=== PATIENT | female | born 1960 | race Caucasian/White ===

== ENCOUNTER 2019-11-02 08:08 | Outpatient (CLI) | payer OTHER, SELFPAY ==
--- NOTE | ~2019-11-02 | MM_ITS ---
EXAMINATION: MM screening [facility] BI w laxmi HISTORY: Screening mammogram TECHNIQUE: Craniocaudal and mediolateral oblique 3-D tomosynthesis images were obtained and synthetic 2-D images were generated. CAD analysis was submitted and interpreted. COMPARISON: 10/27/2018, 10/24/2017, 10/20/2016 bilateral digital screening mammogram examinations BREAST PARENCHYMAL COMPOSITION: There are scattered areas of fibroglandular density. FINDINGS: There is no evidence of suspicious mass, calcification, or architectural distortion to sugg est malignancy in either breast. There has been no suspicious interval change. IMPRESSION: 1. No mammographic evidence of malignancy. 2. Recommend routine screening mammography in one year. BI-RADS Category 1: Negative Reviewed, dictated and finalized at location A.
== END 2019-11-02 08:09 | disposition home or self-care (01) ==
LOC: CHSIMG 08:13
PROVIDERS: PCP Internal Medicine; Visit Provider Internal Medicine
DX: Z12.31 Encounter for screening mammogram for malignant neoplasm of breast (principal)
CPT/HCPCS: 77063; 77067

== ENCOUNTER 2020-02-24 15:34 | Outpatient (CLI) | payer OTHER, SELFPAY ==
[2020-02-24 16:37] LABS: SARS-CoV-2 Ag Positive (Negative)
== END 2020-02-24 15:35 | disposition home or self-care (01) ==
LOC: CHSLAB 15:37
PROVIDERS: PCP Internal Medicine; Visit Provider Emergency Medicine
DX: U07.1 COVID-19 (principal); R05 Cough
CPT/HCPCS: 87426

== ENCOUNTER 2020-09-08 07:50 | Outpatient (CLI) | payer OTHER, SELFPAY ==
--- NOTE | ~2020-09-08 | US_ITS ---
EXAMINATION: US right upper quadrant DATE: 09/08/2020 08:39 INDICATION: Right upper quadrant pain TECHNIQUE: Multiple grayscale and Doppler ultrasound images of the abdomen were obtained. COMPARISON: 12/22/2005 FINDINGS: Bowel gas obscures visualization of the pancreas. The visualized portions of the pancreas a re unremarkable. The liver demonstrates increased echogenicity, heterogenous echotexture, and decreas ed through transmission. No surface nodularity. Normal hepatopetal flow in the main portal vein. Ther e is a 3 mm immobile hyperechoic focus in the gallbladder with no posterior acoustic shadowing. The g allbladder is otherwise normal with no abnormal wall thickening, pericholecystic fluid or stones. The normal common bile duct measures 4 mm. There was no sonographic Salomon sign. IMPRESSION: 1. No sonographic correlate for the patient's symptoms. 2. Likely 3 mm gallbladder polyp. 3. Diffuse hepatic steatosis. Reviewed, dictated and finalized at location B.
[2020-09-08 08:05] LABS: Basophils Absolute Auto 0.04 K/mm3 (0.00-0.10); Basophils Percent Auto 0.7 % (0.0-1.0); Eosinophils Absolute Auto 0.04 K/mm3 (0.02-0.50); Eosinophils Percent Auto 0.7 % (1.0-6.0); Hematocrit 47.5 % (35.0-49.0); Immature Granulocyte Absolute 0.01 K/mm3 (0.00-0.00); Immature Granulocyte Percent A 0.2 % (0.0-0.0); Lymphocytes Absolute Auto 1.83 K/mm3 (1.10-4.50); Lymphocytes Percent Auto 30.4 % (18.0-42.0); Mean Corpuscular HGB Conc 33.7 g/dL (32.0-36.0); Mean Platelet Volume 8.9 fl (9.2-11.8); Monocytes Absolute Auto 0.35 K/mm3 (0.10-0.90); Monocytes Percent Auto 5.8 % (2.0-11.0); Neutrophils Absolute Auto 3.7 K/mm3 (1.7-7.2); Neutrophils Percent Auto 62.2 % (50.0-70.0); Platelet Count Result 282 K/mm3 (150-420); Red Blood Count 5.34 M/mm3 (4.20-5.40); Red Cell Distribution Width 12.5 % (11.6-14.4)
[2020-09-08 08:15] LABS: Appearance Urine Clear (Clear); Bilirubin Urine Negative (Negative); Color Urine Yellow (Yellow); Glucose Urine UA Negative (Negative); Ketones Urine 1+ (Negative); Leukocyte Esterase Ur Negative (Negative); Nitrate Urine Negative (Negative); Protein Urine Negative (Negative); Specific Grav Ur >= 1.030 (1.010-1.020); Urobilinogen Urine 0.2 mg/dL (0.2-1.0); pH Urine 5.5 (5.0-8.0)
[2020-09-08 08:21] LABS: Add Urine Microscopic? YES; Bacteria Urine Trace /hpf; Blood Urine Trace-Intact (Negative); RBC Urine 0-2 /hpf (0-2); Squamous Epithelial Cell Urine Few /hpf (Few); WBC Urine 0-3 /hpf (0-3)
[2020-09-08 09:26] LABS: Alanine Aminotransferase 37 U/L (14-59); Albumin Level 4.1 g/dL (3.4-5.0); Alkaline Phosphatase 92 U/L (46-116); Amylase 39 U/L (25-115); Anion Gap 13 mmol/L (8-16); Aspartate Amino Transferase 19 U/L (15-37); Bilirubin,Total 0.7 mg/dL (0.00-1.00); Blood Urea Nitrogen 19 mg/dL (7-18); Calcium 9.9 mg/dL (8.5-10.1); Carbon Dioxide 25 mmol/L (21-32); Chloride 103 mmol/L (98-108); Estimated Glomerular Filt Rate 56; Glucose 125 mg/dL (70-99); Lipase 195 U/L (73-393); Osmolality Calculated 295 mOsm/kg (285-295); Potassium 4.5 mmol/L (3.5-5.1); Sodium 141 mmol/L (136-145); Thyroid Stimulating Hormone 1.12 uIU/mL (0.36-3.74); Total Protein 7.3 g/dL (6.4-8.2)
== END 2020-09-08 07:51 | disposition home or self-care (01) ==
LOC: CHSIMG 07:51
PROVIDERS: PCP Internal Medicine; Visit Provider Internal Medicine
DX: R10.9 Unspecified abdominal pain (principal)
CPT/HCPCS: 36415; 76705; 80053; 81001; 82150; 83036; 83690; 84443; 85025

== ENCOUNTER 2020-11-03 07:51 | Outpatient (CLI) | payer OTHER, SELFPAY ==
--- NOTE | ~2020-11-03 | MM_ITS ---
EXAMINATION: MM screening [facility] BI w laxmi HISTORY: Screening mammogram TECHNIQUE: Craniocaudal and mediolateral oblique 3-D tomosynthesis images were obtained and synthetic 2-D images were generated. CAD analysis was submitted and interpreted. COMPARISON: 11/02/2019, 10/27/2018, 10/24/2017 BREAST PARENCHYMAL COMPOSITION: There are scattered areas of fibroglandular density. FINDINGS: There is no evidence of suspicious mass, calcification, or architectural distortion to sugg est malignancy in either breast. There has been no suspicious interval change. IMPRESSION: 1. No mammographic evidence of malignancy. 2. Recommend routine screening mammography in one year. BI-RADS Category 1: Negative Reviewed, dictated and finalized at location A.
== END 2020-11-03 07:52 | disposition home or self-care (01) ==
LOC: CHSIMG 07:53
PROVIDERS: PCP Internal Medicine; Visit Provider Internal Medicine
DX: Z12.31 Encounter for screening mammogram for malignant neoplasm of breast (principal)
CPT/HCPCS: 77063; 77067

== ENCOUNTER 2020-11-04 15:14 | Outpatient (CLI) | payer OTHER, SELFPAY ==
[2020-11-04 15:35] LABS: Add Urine Microscopic? YES; Appearance Urine Sl Cloudy (Clear); Bilirubin Urine Negative (Negative); Blood Urine 1+ (Negative); Color Urine Light Yellow (Yellow); Glucose Urine UA Negative (Negative); Ketones Urine Negative (Negative); Leukocyte Esterase Ur 1+ LEU/UL (Negative); Nitrate Urine Negative (Negative); Protein Urine Negative (Negative); Specific Grav Ur 1.025 (1.010-1.020); Urobilinogen Urine 0.2 mg/dL (0.2-1.0); pH Urine 5.5 (5.0-8.0)
[2020-11-04 15:40] LABS: Bacteria Urine 1+ /hpf; Calcium Oxalate Crystals Urine Present /hpf; Squamous Epithelial Cell Urine Few /hpf (Few)
== END 2020-11-04 15:15 | disposition home or self-care (01) ==
LOC: CHSLAB 15:16
PROVIDERS: PCP Internal Medicine; Visit Provider Internal Medicine
DX: N39.0 Urinary tract infection, site not specified (principal)
CPT/HCPCS: 81001; 87086; 87088

== ENCOUNTER 2021-04-30 07:28 | Outpatient (CLI) | payer OTHER, SELFPAY ==
[2021-04-30 07:40] LABS: Basophils Absolute Auto 0.04 K/mm3 (0.00-0.10); Basophils Percent Auto 0.8 % (0.0-1.0); Eosinophils Absolute Auto 0.03 K/mm3 (0.02-0.50); Eosinophils Percent Auto 0.6 % (1.0-6.0); Hemoglobin 15.8 g/dL (12.0-15.0); Immature Granulocyte Absolute 0.01 K/mm3 (0.00-0.00); Immature Granulocyte Percent A 0.2 % (0.0-0.0); Lymphocytes Absolute Auto 1.97 K/mm3 (1.10-4.50); Lymphocytes Percent Auto 39.9 % (18.0-42.0); Mean Corpuscular HGB Conc 32.9 g/dL (32.0-36.0); Mean Corpuscular Hemoglobin 29.5 pg (27.0-31.0); Mean Corpuscular Volume 89.6 fL (78.0-102.0); Mean Platelet Volume 8.9 fl (9.2-11.8); Monocytes Absolute Auto 0.27 K/mm3 (0.10-0.90); Monocytes Percent Auto 5.5 % (2.0-11.0); Neutrophils Absolute Auto 2.6 K/mm3 (1.7-7.2); Platelet Count Result 279 K/mm3 (150-420); Red Blood Count 5.36 M/mm3 (4.20-5.40); Red Cell Distribution Width 12.2 % (11.6-14.4); White Blood Count 4.9 K/mm3 (4.8-10.8)
[2021-04-30 07:53] LABS: Hemoglobin A1C 5.9 % (<5.7)
[2021-04-30 08:46] LABS: Alanine Aminotransferase 31 U/L (14-59); Alkaline Phosphatase 96 U/L (46-116); Anion Gap 10 mmol/L (8-16); Aspartate Amino Transferase 15 U/L (15-37); Bilirubin,Total 0.6 mg/dL (0.00-1.00); Blood Urea Nitrogen 15 mg/dL (7-18); Calcium 10.4 mg/dL (8.5-10.1); Carbon Dioxide 26 mmol/L (21-32); Chloride 105 mmol/L (98-108); Estimated Glomerular Filt Rate 57; Glucose 123 mg/dL (70-99); Osmolality Calculated 293 mOsm/kg (285-295); Potassium 4.6 mmol/L (3.5-5.1); Sodium 141 mmol/L (136-145); Total Protein 7.2 g/dL (6.4-8.2)
== END 2021-04-30 07:29 | disposition home or self-care (01) ==
LOC: CHSLAB 07:30
PROVIDERS: PCP Internal Medicine; Visit Provider Internal Medicine
DX: R73.03 Prediabetes (principal)
CPT/HCPCS: 36415; 80053; 83036; 85025

== ENCOUNTER 2021-05-04 08:02 | Outpatient (CLI) | payer OTHER, SELFPAY ==
[2021-05-04 10:41] LABS: Calcium 9.8 mg/dL (8.5-10.1); Phosphorus 2.2 mg/dL (2.6-4.7)
[2021-05-06 05:19] LABS: Ionized Calcium 5.3 mg/dL (4.8-5.6)
[2021-05-07 21:23] LABS: Parathyroid Intact 145 pg/mL (14-64)
== END 2021-05-04 08:03 | disposition home or self-care (01) ==
LOC: CHSLAB 08:04
PROVIDERS: PCP Internal Medicine; Visit Provider Internal Medicine
DX: E83.52 Hypercalcemia (principal)
CPT/HCPCS: 36415; 82310; 82330; 83970; 84100

== ENCOUNTER 2021-06-18 07:14 | Outpatient (CLI) | payer OTHER, SELFPAY ==
--- NOTE | ~2021-06-18 | DEXA_ITS ---
Bone Density Report Name: EN LEE Age: 61 Sex: Female Ethnicity: White Date of : 1960 Indication: hyperparathyroidism; height loss; hysterectomy; Referring Provider: EUGENE, ANNA Study: Bone densitometry was performed. Exam Date: June 18, 2021 Accession number: [id number] Bone Density: Region BMD T-score Z-score Classification AP Spine(L1-L4) 0.797 -2.3 -0.8 Osteopenia Femoral Neck (Left) 0.625 -2.0 -0.7 Osteopenia Total Hip (Left) 0.741 -1.6 -0.6 Osteopenia Femoral Neck (Right) 0.669 -1.6 -0.3 Osteopenia Total Hip (Right) 0.808 -1.1 -0.1 Osteopenia Femoral Neck Mean 0.647 -1.8 -0.5 Osteopenia Total Hip Mean 0.774 -1.4 -0.4 Osteopenia World Health Organization criteria for BMD impression classify patients as: Normal (T-score at or above -1.0), Osteopenia (T-score between -1.0 and -2.5), or Osteoporosis (T-score at or below -2.5). 10-year Fracture Risk(1): Major Osteoporotic Fracture 4.6% Hip Fracture 0.5% Reported Risk Factors: [place] (), Neck BMD=0.625, BMI=42.1 (1) FRAX(R) Version 3.08. Fracture probability calculated for an untreated patient. Fracture probability may be lower if the patient has received treatment. Clinical Information Provided by Patient: Has the following medical conditions: Hyperparathyroidism, Hysterectomy Patient maximum height was 65 Menopause Age: 35 No regular weight bearing exercise Drinks caffeinated beverages Onset of menses at age 12 Number of children 3 Impression: The patient has low bone mass, based on the Total Spine T-score. Discussion: BONE DENSITY IS LOW AT ONE OR MORE SKELETAL SITES. This patient's lowest T-score is low at one or more skeletal sites. It meets the World Health Organization's (WHO) criteria for ?low bone mass? (T-score between -1.0 and -2.5). The patient's 10-year risk of fracture as calculated by FRAX is less than the threshold where pharmacological therapy is recommended by the National Osteoporosis Foundation (NOF). However, all treatment decisions require clinical judgment and consideration of individual patient factors, including patient preferences, comorbidities, previous drug use, risk factors not captured in the FRAX model (e.g., frailty, falls, vitamin D deficiency, increased bone turnover, interval significant decline in bone density) and possible under or overestimation of fracture risk by FRAX. The patient should follow a healthful lifestyle (good nutrition with adequate calcium and vitamin D, and appropriate weight-bearing exercise). Follow-Up: Consider repeating this study in 2 to 3 years to reassess this patient's status, or sooner if there is some new clinical indication. Reported by: Dr. Donell Eagle on 06/18/2021 8:41:00 AM.
[2021-06-18 07:43] LABS: Hemoglobin A1C 5.9 % (<5.7)
[2021-06-18 08:55] LABS: Alanine Aminotransferase 42 U/L (14-59); Albumin Level 3.9 g/dL (3.4-5.0); Alkaline Phosphatase 91 U/L (46-116); Anion Gap 10 mmol/L (8-16); Aspartate Amino Transferase 23 U/L (15-37); Bilirubin,Total 0.7 mg/dL (0.00-1.00); Blood Urea Nitrogen 13 mg/dL (7-18); Calcium 9.8 mg/dL (8.5-10.1); Carbon Dioxide 24 mmol/L (21-32); Chloride 106 mmol/L (98-108); Estimated Glomerular Filt Rate > 60; Free T3 2.88 pg/mL (2.18-3.98); Free T4 Free Thyroxine 1.25 ng/dL (0.76-1.46); Glucose 114 mg/dL (70-99); Osmolality Calculated 291 mOsm/kg (285-295); Phosphorus 2.7 mg/dL (2.6-4.7); Potassium 4.6 mmol/L (3.5-5.1); Sodium 140 mmol/L (136-145); Thyroid Stimulating Hormone 1.44 uIU/mL (0.36-3.74); Total Protein 7.6 g/dL (6.4-8.2)
[2021-06-21 02:00] LABS: Ionized Calcium 5.4 mg/dL (4.8-5.6)
[2021-06-21 12:12] LABS: Total Volume 1800 mL; Urine Calcium 19.4 mg/dL
[2021-06-23 12:08] LABS: Parathyroid Intact 293 pg/mL (14-64)
[2021-06-23 13:50] LABS: Vitamin D 25 Hydroxy 11 ng/mL (30-100)
== END 2021-06-18 07:15 | disposition home or self-care (01) ==
PROVIDERS: PCP Internal Medicine; Visit Provider Nurse Practitioner
DX: E21.3 Hyperparathyroidism, unspecified (principal); R73.03 Prediabetes
CPT/HCPCS: 36415; 77080; 80053; 82306; 82330; 82340; 83036; 83525; 83970; 84100; 84439; 84443; 84481

== ENCOUNTER 2021-09-23 07:52 | Outpatient (CLI) | payer OTHER, SELFPAY ==
[2021-09-23 09:11] LABS: Alanine Aminotransferase 32 U/L (14-59); Albumin Level 3.9 g/dL (3.4-5.0); Alkaline Phosphatase 90 U/L (46-116); Anion Gap 6 mmol/L (8-16); Aspartate Amino Transferase 15 U/L (15-37); Bilirubin,Total 0.7 mg/dL (0.00-1.00); Blood Urea Nitrogen 12 mg/dL (7-18); Carbon Dioxide 26 mmol/L (21-32); Chloride 107 mmol/L (98-108); Estimated Glomerular Filt Rate > 60; Glucose 128 mg/dL (70-99); Osmolality Calculated 289 mOsm/kg (285-295); Phosphorus 2.2 mg/dL (2.6-4.7); Potassium 4.5 mmol/L (3.5-5.1); Sodium 139 mmol/L (136-145); Total Protein 7.4 g/dL (6.4-8.2)
[2021-09-26 18:59] LABS: Vitamin D 25 Hydroxy 44 ng/mL (30-100)
[2021-09-27 08:58] LABS: Ionized Calcium 5.4 mg/dL (4.8-5.6)
[2021-09-28 13:24] LABS: Parathyroid Intact 129 pg/mL (14-64)
== END 2021-09-23 07:53 | disposition home or self-care (01) ==
LOC: CHSLAB 07:54
PROVIDERS: PCP Internal Medicine; Visit Provider Nurse Practitioner
DX: E21.3 Hyperparathyroidism, unspecified (principal)
CPT/HCPCS: 36415; 80053; 82306; 82330; 83970; 84100

== ENCOUNTER 2021-09-24 07:19 | Outpatient (CLI) | payer OTHER, SELFPAY ==
[2021-09-29 20:54] LABS: Total Volume 1000 mL; Urine Calcium 38.8 mg/dL
== END 2021-09-24 07:20 | disposition home or self-care (01) ==
LOC: CHSLAB 07:21
PROVIDERS: PCP Nurse Practitioner; Visit Provider Nurse Practitioner
DX: E21.3 Hyperparathyroidism, unspecified (principal)
CPT/HCPCS: 82340

== ENCOUNTER 2021-11-05 07:20 | Outpatient (CLI) | payer OTHER, SELFPAY ==
--- NOTE | ~2021-11-05 | MM_ITS ---
EXAMINATION: MM screening [facility]la BI w laxmi HISTORY: Screening TECHNIQUE: Craniocaudal and mediolateral oblique 3-D tomosynthesis images were obtained and synthetic 2-D images were generated. CAD analysis was submitted and interpreted. COMPARISON: Comparison to multiple prior studies sequentially, with oldest reviewed study dated 09/07. BREAST PARENCHYMAL COMPOSITION: The breasts are almost entirely fatty. FINDINGS: There is no evidence of suspicious mass, calcification, or architectural distortion to sugg est malignancy in either breast. There has been no suspicious interval change. IMPRESSION: 1. No mammographic evidence of malignancy. 2. Recommend routine screening mammography in one year. BI-RADS Category 1: Negative Reviewed, dictated and finalized at location A.
== END 2021-11-05 07:21 | disposition home or self-care (01) ==
LOC: CHSIMG 07:21
PROVIDERS: PCP Internal Medicine; Visit Provider Internal Medicine
DX: Z12.31 Encounter for screening mammogram for malignant neoplasm of breast (principal)
CPT/HCPCS: 77063; 77067

== ENCOUNTER 2022-01-26 07:17 | Outpatient (CLI) | payer OTHER, SELFPAY ==
[2022-01-26 07:53] LABS: Hemoglobin A1C 5.9 % (<5.7)
[2022-01-26 08:16] LABS: Alanine Aminotransferase 36 U/L (14-59); Albumin Level 3.9 g/dL (3.4-5.0); Alkaline Phosphatase 78 U/L (46-116); Anion Gap 6 mmol/L (8-16); Aspartate Amino Transferase 20 U/L (15-37); Bilirubin,Total 0.6 mg/dL (0.00-1.00); Blood Urea Nitrogen 15 mg/dL (7-18); Calcium 10.3 mg/dL (8.5-10.1); Carbon Dioxide 30 mmol/L (21-32); Chloride 105 mmol/L (98-108); Estimated Glomerular Filt Rate 50; Glucose 124 mg/dL (70-99); Osmolality Calculated 293 mOsm/kg (285-295); Phosphorus 2.6 mg/dL (2.6-4.7); Potassium 4.4 mmol/L (3.5-5.1); Sodium 141 mmol/L (136-145); Total Protein 7.3 g/dL (6.4-8.2)
[2022-01-28 17:41] LABS: Vitamin D 25 Hydroxy 60 ng/mL (30-100)
[2022-01-29 10:36] LABS: Insulin Level Total 6.8 uIU/mL (<=19.6)
[2022-01-29 17:12] LABS: Ionized Calcium 5.5 mg/dL (4.8-5.6)
[2022-01-31 19:51] LABS: Parathyroid Intact 151 pg/mL (14-64)
== END 2022-01-26 07:18 | disposition home or self-care (01) ==
LOC: CHSLAB 07:19
PROVIDERS: PCP Internal Medicine; Visit Provider Nurse Practitioner
DX: E21.3 Hyperparathyroidism, unspecified (principal); R73.03 Prediabetes; E55.9 Vitamin D deficiency, unspecified
CPT/HCPCS: 36415; 80053; 82306; 82330; 83036; 83525; 83970; 84100

== ENCOUNTER 2022-06-11 07:46 | Outpatient (CLI) | payer OTHER, SELFPAY ==
[2022-06-11 08:20] LABS: Hemoglobin A1C 5.9 % (<5.7)
[2022-06-11 08:51] LABS: Alanine Aminotransferase 48 U/L (14-59); Alkaline Phosphatase 75 U/L (46-116); Anion Gap 18 mmol/L (8-16); Aspartate Amino Transferase 20 U/L (15-37); Bilirubin,Total 0.7 mg/dL (0.00-1.00); Blood Urea Nitrogen 13 mg/dL (7-18); Calcium 10.1 mg/dL (8.5-10.1); Carbon Dioxide 18 mmol/L (21-32); Chloride 106 mmol/L (98-108); Estimated Glomerular Filt Rate 58; Glucose 134 mg/dL (70-99); Osmolality Calculated 296 mOsm/kg (285-295); Phosphorus 2.4 mg/dL (2.6-4.7); Potassium 4.4 mmol/L (3.5-5.1); Sodium 142 mmol/L (136-145); Total Protein 7.7 g/dL (6.4-8.2)
[2022-06-14 11:31] LABS: Ionized Calcium 5.5 mg/dL (4.7-5.5)
[2022-06-15 12:43] LABS: Insulin Level Total 10.9 uIU/mL (<=19.6)
[2022-06-15 17:50] LABS: Vitamin D 25 Hydroxy 56 ng/mL (30-100)
[2022-06-16 16:11] LABS: Parathyroid Intact 159 pg/mL (14-64)
[2022-06-17 05:47] LABS: Calcium/Creatinine Ratio, Ur 228 mg/g creat (10-320)
[2022-06-19 11:01] LABS: Urine Creatinine, Random 57 mg/dL
== END 2022-06-11 07:47 | disposition home or self-care (01) ==
LOC: CHSLAB 07:48
PROVIDERS: PCP Internal Medicine; Visit Provider Nurse Practitioner
DX: E21.3 Hyperparathyroidism, unspecified (principal); R73.03 Prediabetes; E55.9 Vitamin D deficiency, unspecified
CPT/HCPCS: 36415; 80053; 82306; 82310; 82330; 82570; 83036; 83525; 83970; 84100

== ENCOUNTER 2022-11-08 07:26 | Outpatient (CLI) | payer OTHER, SELFPAY ==
--- NOTE | ~2022-11-08 | MM_ITS ---
EXAMINATION: MM screening [facility] BI w laxmi HISTORY: Screening mammogram TECHNIQUE: Craniocaudal and mediolateral oblique 3-D tomosynthesis images were obtained and synthetic 2-D images were generated. CAD analysis was submitted and interpreted. COMPARISON: 11/05/2021, 11/03/2020, 11/02/2019 BREAST PARENCHYMAL COMPOSITION: There are scattered areas of fibroglandular density. FINDINGS: No suspicious mass, calcification, or architectural distortion are identified in either pascale ast to suggest malignancy. There has been no suspicious interval change. IMPRESSION: 1. No mammographic evidence of malignancy. 2. Recommend routine screening mammography in one year. BI-RADS Category 1: Negative Reviewed, dictated and finalized at location A.
== END 2022-11-08 07:27 | disposition home or self-care (01) ==
LOC: CHSIMG 07:27
PROVIDERS: PCP Internal Medicine; Visit Provider Internal Medicine
DX: Z12.31 Encounter for screening mammogram for malignant neoplasm of breast (principal)
CPT/HCPCS: 77063; 77067

== ENCOUNTER 2022-11-30 13:00 | Outpatient (CLI) | payer OTHER, SELFPAY ==
--- NOTE | ~2022-11-30 | XR_ITS ---
EXAMINATION: XR hip LT min 2V INDICATION: Left hip pain TECHNIQUE: Two views of the left hip are obtained. COMPARISON: None available FINDINGS: Bone alignment is normal. There is no fracture. There is mild osteoarthritis of the hip. Mo derate osteitis pubis is noted. There are phleboliths of the pelvis. IMPRESSION: 1. Mild osteoarthritis of the hip. Reviewed, dictated and finalized at location L.
--- NOTE | ~2022-11-30 | XR_ITS ---
EXAMINATION: XR lumbar spine 2-3V DATE: 11/30/2022 13:32 INDICATION: Low back pain TECHNIQUE: Anteroposterior and lateral views of the lumbar spine, and cone-down lateral view of the l umbosacral junction were obtained. COMPARISON: 04/25/2008 FINDINGS: There are 2 mm of anterolisthesis of L5 on S1. The vertebral body heights are maintained. T here is moderate loss of intervertebral disc space height at L4-5 and L5-S1. There is no fracture. Mo derate facet joint osteoarthritis noted in the lower lumbar spine. IMPRESSION: 1. Moderate lower lumbar spondylosis without acute findings. Reviewed, dictated and finalized at location L.
--- NOTE | ~2022-11-30 | XR_ITS ---
EXAMINATION: XR knee LT 3V DATE: 11/30/2022 13:33 INDICATION: Left knee pain TECHNIQUE: Three views of the left knee were obtained. COMPARISON: None. FINDINGS: Alignment is normal. No fracture or osteochondral lesion. There is mild tricompartmental os teoarthritis characterized by tiny marginal osteophytes. No joint effusion/synovitis. Soft tissues a re unremarkable. IMPRESSION: 1. Mild osteoarthritis without acute osseous abnormality. Reviewed, dictated and finalized at location L.
== END 2022-11-30 13:01 | disposition home or self-care (01) ==
LOC: CHSIMG 13:02
PROVIDERS: PCP Internal Medicine; Visit Provider Internal Medicine
DX: M17.12 Unilateral primary osteoarthritis, left knee (principal); M16.12 Unilateral primary osteoarthritis, left hip; M43.06 Spondylolysis, lumbar region
CPT/HCPCS: 72100; 73502; 73562

== ENCOUNTER 2022-12-06 15:01 | Outpatient (RCR) | payer OTHER, SELFPAY ==
--- NOTE | 2022-12-06 15:54 | PTOPEVAL1 ---
Assessment and note entered by Solitario Fernando Evaluation Information Assessment Status Evaluation Diagnosis low back pain Onset 11/05/22 Subjective Information Pt. describes pain starting in the left buttock and radiating into the front of the left thigh. She recalls no particular incident, just a gradual onset of pain about 1 month ago. She reports that her pain has been getting worse over the past month. She reports that she has been more busy with walking lately which may be increasing her pain. She reports she has to sleep in the recliner due to her pain. She reports that she is currently taking a steroid dose pack, however no relief. She reports that she can walk about 10 minutes before having to stop due to pain. She reports that she has had xray of the back, hip and knee, which revealed some problems at the L4-5, L5-S1 area. She reports that her goal is to reduce her pain with walking. Reported Pain Level Pain Score 8: Self Report Assessment PT Clinical Summary Pt. is a 62 year old female who enters the clinic with low back pain and left l.e. radiculopathy. She presents with impaired postural awareness, impaired gait, impaired l.e. strength, pain and functional decline. Continued skilled PT is indicated in order to improve these areas to allow the pt. to be able to complete all IADL's without limitation. Plan of Care Interventions Electrical Stimulation,Hot Pack/Cold Pack,Manual Therapy,Mechanical Traction,Neuro Re-education, Patient/Caregiver Educati,Therapeutic Activities, Therapeutic Exercise PT Services Indicated Yes Treatment Frequency and 2x/week x 10 visits Duration These treatments will address the objective and functional deficits as defined above. The patient will be advanced safely and appropriately in order for the patient to progress towards his/her prior level of function. Additional exercises will be introduced and as well as a comprehensive home exercise program upon discharge, if needed, ?to ensure carryover of functional gains achieved in the clinic. This treatment plan has been reviewed and agreement upon by the patient.
--- NOTE | 2022-12-06 16:12 | OPREHPOC ---
Outpatient Therapy Plan of Care This is a Multidisciplinary Plan of Care that may contain components documented by all disciplines (PT, OT, and ST.) PT Problem 1 PT Problem #1 Knowledge Deficit PT Goal 1 Goal Independent with a HEP focusing on core strength and trunk mobility Target Visit 2 PT Problem 2 PT Problem #2 Impaired Flexibility PT Goal 1 Goal Pt. will present at 10 degrees from full knee extension with the 90/90 test on the left Target Visit 5 PT Problem 3 PT Problem #3 Impaired Functional Mobil PT Goal 1 Goal Pt. will present with ability to complete 20-30 minutes of standing activities with 2/10 pain at worst. Target Visit 10 PT Goal 2 Goal Pt. will demonstrate ability to lift 20# from floor to waist with proper body mechanics. Target Visit 10
--- NOTE | 2023-01-10 10:24 | PTOPDC ---
Assessment and note entered by Solitario Fernando Discharge Information Assessment Status Discharge Diagnosis low back pain Onset 11/05/22 Subjective Information Pt. reports that she only notes temporary relief following therapy. She reports that she still has pain radiating through the described lateral left thigh. She reports that she is still having difficulty with sleeping at night. She states that she will contact her doctor regarding her remaining pain. Reported Pain Level Pain Score 5: Self Report Assessment PT Clinical Summary Pt. has demonstrated no change in her reports of pain and demonstrates a decline in her Oswestry score. She continues to present with symptoms consistent with lumbar radiculopathy as well as interarticular pathology at the hip. At this time recommend the pt. return to her doctor and consider MRI of the spine to determine if injections are appropriate. Plan of Care PT Services Indicated D/C from PT and considder MRI of the lumbar spine.
== END 2023-01-10 11:35 | disposition home or self-care (01) ==
LOC: CHSPT 15:01
PROVIDERS: PCP Internal Medicine; Visit Provider Internal Medicine
DX: M54.50 Low back pain, unspecified (principal)
CPT/HCPCS: 97012; 97014; 97110; 97140; 97161; G0283

== ENCOUNTER 2023-01-20 08:18 | Outpatient (CLI) | payer OTHER, SELFPAY ==
--- NOTE | ~2023-01-20 | MR_ITS ---
MRI of the lumbar spine Clinical History: Left lower extremity pain Technique: Axial T2-weighted images, and sagittal T1-weighted, T2-weighted, and T2 fat-sat images wer e acquired. Findings: There is no fracture or subluxation of the lumbar spine. Vertebral bodies maintain normal h eight and alignment. No suspicious bone marrow signal abnormality seen. At L1-L2, there is mild disc bulge. No spinal canal stenosis or neural foraminal narrowing. At L2-L3, there is no disc bulge or herniation. No spinal canal stenosis or neural foraminal narrowin g. At L3-L4, there is no significant disc bulge or herniation. There is mild facet arthropathy. No spina l canal stenosis or neural foraminal narrowing. At L4-L5, there is mild diffuse disc bulge and mild facet arthropathy. No central canal stenosis. The re is mild to moderate right neural foraminal narrowing. Left neural foramen preserved. At L5-S1, there is mild diffuse disc bulge with severe facet arthropathy. There is probable severe or thecal sac compression, largely due to prominent epidural fat at this region. There is mild to moder ate bilateral neural foraminal narrowing. Paravertebral soft tissues are otherwise unremarkable. Impression: Severe thecal sac compression and L5-S1, largely due to prominent epidural fat in this region. Mild to moderate bilateral neural foraminal narrowing at L5-S1. Mild degenerative change at L4-L5. Reviewed, dictated and finalized at [facility]. MINING ANALYST Impression: Severe thecal sac compression and L5-S1, largely due to prominent epidural fat in this region. Mild to moderate bilateral neural foraminal narrowing at L5-S1. Mild degenerative change at L4-L5.
== END 2023-01-20 08:19 | disposition home or self-care (01) ==
LOC: CHSIMG 08:20
PROVIDERS: PCP Internal Medicine; Visit Provider Internal Medicine
DX: M79.605 Pain in left leg (principal); M25.552 Pain in left hip; G95.29 Other cord compression; M48.07 Spinal stenosis, lumbosacral region
CPT/HCPCS: 72148

== ENCOUNTER 2023-02-17 07:58 | Outpatient (CLI) | payer OTHER, SELFPAY ==
[2023-02-17 08:11] LABS: Basophils Absolute Auto 0.06 K/mm3 (0.00-0.10); Basophils Percent Auto 1.1 % (0.0-1.0); Eosinophils Absolute Auto 0.08 K/mm3 (0.02-0.50); Eosinophils Percent Auto 1.5 % (1.0-6.0); Hematocrit 46.5 % (35.0-49.0); Hemoglobin 15.3 g/dL (12.0-15.0); Immature Granulocyte Absolute 0.01 K/mm3 (0.00-0.00); Immature Granulocyte Percent A 0.2 % (0.0-0.0); Lymphocytes Absolute Auto 2.04 K/mm3 (1.10-4.50); Lymphocytes Percent Auto 37.5 % (18.0-42.0); Mean Corpuscular HGB Conc 32.9 g/dL (32.0-36.0); Mean Corpuscular Hemoglobin 29.5 pg (27.0-31.0); Mean Corpuscular Volume 89.8 fL (78.0-102.0); Mean Platelet Volume 8.5 fl (9.2-11.8); Monocytes Absolute Auto 0.31 K/mm3 (0.10-0.90); Monocytes Percent Auto 5.7 % (2.0-11.0); Neutrophils Absolute Auto 2.9 K/mm3 (1.7-7.2); Platelet Count Result 328 K/mm3 (150-420); Red Blood Count 5.18 M/mm3 (4.20-5.40); Red Cell Distribution Width 12.3 % (11.6-14.4); White Blood Count 5.4 K/mm3 (4.8-10.8)
[2023-02-17 08:14] LABS: Appearance Urine Slightly Cloudy (Clear); Bilirubin Urine Negative (Negative); Color Urine Light Yellow (Yellow); Glucose Urine UA Negative (Negative); Ketones Urine Negative (Negative); Leukocyte Esterase Ur 2+ (Negative); Nitrate Urine Negative (Negative); Protein Urine Negative (Negative)
[2023-02-17 08:18] LABS: Creatinine Urine 118.44 mg/dL (40-278); MALB Creatinine Ratio 17.6 mg/g (0-30); Microalbumin Urine Random 20.9 mg/L
[2023-02-17 08:26] LABS: Hemoglobin A1C 5.6 % (<5.7)
[2023-02-17 08:33] LABS: Add Urine Microscopic? YES; Blood Urine Trace-lysed (Negative); RBC Urine 0-2 /hpf (0-2)
[2023-02-17 08:34] LABS: Bacteria Urine Rare /hpf; Squamous Epithelial Cell Urine Few /hpf (Few)
[2023-02-17 08:57] LABS: Alanine Aminotransferase 37 U/L (14-59); Albumin Level 4.2 g/dL (3.4-5.0); Alkaline Phosphatase 83 U/L (46-116); Anion Gap 2 mmol/L (8-16); Aspartate Amino Transferase 15 U/L (15-37); Bilirubin,Total 0.8 mg/dL (0.00-1.00); Blood Urea Nitrogen 14 mg/dL (7-18); Calcium 10.5 mg/dL (8.5-10.1); Carbon Dioxide 32 mmol/L (21-32); Chloride 101 mmol/L (98-108); Cholesterol 247 mg/dL (0-200); Estimated Glomerular Filt Rate 49; Free T3 2.69 pg/mL (2.18-3.98); Free T4 Free Thyroxine 1.31 ng/dL (0.76-1.46); Glucose 112 mg/dL (70-99); HDL Direct 67 mg/dL (40-60); LDL Cholesterol Calculated 155 mg/dL (<130); Osmolality Calculated 281 mOsm/kg (285-295); Potassium 4.2 mmol/L (3.5-5.1); Sodium 135 mmol/L (136-145); Thyroid Stimulating Hormone 0.95 uIU/mL (0.36-3.74); Total Protein 7.4 g/dL (6.4-8.2); Triglycerides 125 mg/dL (0-150)
[2023-02-20 15:43] LABS: Vitamin D 25 Hydroxy 54 ng/mL (30-100)
[2023-02-20 22:21] LABS: Vitamin D 1,25 (OH)2 Total 65 pg/mL (18-72); Vitamin D2 1,25 (OH)2 <8 pg/mL; Vitamin D3 1,25 (OH)2 65 pg/mL
[2023-02-21 21:00] LABS: Parathyroid Intact 185 pg/mL (14-64)
== END 2023-02-17 07:59 | disposition home or self-care (01) ==
LOC: CHSLAB 07:59
PROVIDERS: PCP Internal Medicine; Visit Provider Internal Medicine
DX: Z00.00 Encounter for general adult medical examination without abnormal findings (principal); R73.03 Prediabetes; E21.3 Hyperparathyroidism, unspecified
CPT/HCPCS: 36415; 80053; 80061; 81001; 82043; 82306; 82652; 83036; 83970; 84439; 84443; 84481; 85025

== ENCOUNTER 2023-02-24 07:19 | Outpatient (CLI) | payer OTHER, SELFPAY ==
--- NOTE | ~2023-02-24 | MR_ITS ---
MRI of the left hip Clinical history: Pain Technique: Coronal T1-weighted, T2-weighted, and proton-density fat-sat images, and axial T1-weighted and proton-density fat-sat images were acquired through the pelvis. Coronal T2-weighted images and c oronal, axial, and sagittal proton-density fat-sat images were acquired through the left hip. Findings: There is no acute fracture or avascular necrosis of either hip. There is extensive marrow e jsoi of the left femoral head and femoral neck, with associated myoedema probably in the superior lef t acetabulum. There is extensive high-grade chondral malacia the left hip joint. Moderate left hip erica int effusion is present. No definite left acetabular labral tear identified. Right hip joint is trace diffuse mild to moderate chondral malacia. No marrow edema about the right h ip. No right hip joint effusion. SI joints appear intact. No muscle atrophy or edema identified about the pelvis or left hip. The rest tendons are intact. No e vidence for bursitis. No soft tissue mass seen. IMPRESSION: Extensive marrow edema of the left femoral head and neck, with more mild involvement in the acetabulu m. This is probably reactive marrow edema due to underlying advanced degenerative change/chondromalac ia of the left hip joint. Septic arthritis or transient osteoporosis of the hip would be a potential alternative considerations. No definite fracture or AVN seen. Moderate left hip joint effusion, nonspecific. Consider joint aspiration, especially if there is any clinical concern for septic joint. Reviewed, dictated and finalized at location . LE ASSEMBLER IMPRESSION: Extensive marrow edema of the left femoral head and neck, with more mild involv ement in the acetabulum. This is probably reactive marrow edema due to underlyi ng advanced degenerative change/chondromalacia of the left hip joint. Septic ar thritis or transient osteoporosis of the hip would be a potential alternative c onsiderations. No definite fracture or AVN seen. Moderate left hip joint effusion, nonspecific. Consider joint aspiration, espec ially if there is any clinical concern for septic joint.
== END 2023-02-24 07:20 | disposition home or self-care (01) ==
LOC: CHSIMG 07:20
PROVIDERS: PCP Internal Medicine; Visit Provider Internal Medicine
DX: M25.552 Pain in left hip (principal); M79.89 Other specified soft tissue disorders; M94.252 Chondromalacia, left hip; M25.452 Effusion, left hip
CPT/HCPCS: 73721

== ENCOUNTER 2023-02-28 08:29 | Outpatient (CLI) | payer OTHER, SELFPAY ==
--- NOTE | ~2023-02-28 | NM_ITS ---
EXAMINATION: NM parathyroid w imaging DATE: 02/28/2023 12:32 INDICATION: Hyperparathyroidism TECHNIQUE: 24.2 mCi Tc99m tetrofosmin (Myoview) was administered by intravenous route. Anterior image s of the neck were obtained at 10 minutes and 2 hours. COMPARISON: None. FINDINGS/IMPRESSION: There is no focus of abnormal persistent activity in the area of the thyroid or mediastinum to sugges t parathyroid adenoma. Reviewed, dictated and finalized at location A. HEADER
== END 2023-02-28 08:30 | disposition home or self-care (01) ==
LOC: CHSIMG 08:30
PROVIDERS: PCP Internal Medicine; Visit Provider Internal Medicine Endocrinology, Diabetes & Metabolism
DX: R82.994 Hypercalciuria (principal); E21.3 Hyperparathyroidism, unspecified
CPT/HCPCS: 78070; A9500

== ENCOUNTER 2023-05-17 09:08 | Outpatient (CLI) | payer OTHER, SELFPAY ==
--- NOTE | ~2023-05-17 | US_ITS ---
EXAMINATION: US thyroid DATE: 05/17/2023 09:32 INDICATION: Hyperparathyroidism TECHNIQUE: Multiple ultrasound images of the thyroid were obtained. COMPARISON: None. FINDINGS: The right thyroid lobe measures 3.7 x 1.7 x 1.5 cm. The thyroid isthmus measures 7 mm in maximal thic kness. The left thyroid lobe measures 3.9 x 2.7 x 2.7 cm. There is a 3.2 x 2.5 x 2.5 cm predominant solid isoechoic nodule with smooth to ill-defined margins and without internal echogenic foci in the left thyroid lobe. (TI-RADS 3, mildly suspicious , FNA if >=2.5 cm, annual followup is >=1.5 cm). The re is otherwise normal echotexture, echogenicity and vascular flow throughout the thyroid gland. IMPRESSION: 1. 3.2 cm TI RADS 3 left thyroid nodule for which ultrasound-guided biopsy would be recommended. Reviewed, dictated and finalized at location A. [facility] [employer] IMPRESSION: 1. 3.2 cm TI RADS 3 left thyroid nodule for which ultrasound-guided biopsy woul d be recommended.
== END 2023-05-17 09:09 | disposition home or self-care (01) ==
LOC: CHSIMG 09:11
PROVIDERS: PCP Internal Medicine
DX: E21.3 Hyperparathyroidism, unspecified (principal); E04.1 Nontoxic single thyroid nodule
CPT/HCPCS: 76536

== ENCOUNTER 2023-08-01 07:17 | Outpatient (CLI) | payer OTHER, SELFPAY ==
[2023-08-01 23:10] LABS: Alanine Aminotransferase 30 U/L (14-59); Albumin Level 3.9 g/dL (3.4-5.0); Alkaline Phosphatase 68 U/L (46-116); Anion Gap 8 mmol/L (4-12); Aspartate Amino Transferase 17 U/L (15-37); Bilirubin,Total 1.3 mg/dL (0.00-1.00); Blood Urea Nitrogen 15 mg/dL (7-18); Calcium 10.9 mg/dL (8.5-10.1); Carbon Dioxide 32 mmol/L (21-32); Chloride 101 mmol/L (98-108); Cholesterol 143 mg/dL (0-200); Estimated Glomerular Filt Rate > 60; Free T4 Free Thyroxine 1.21 ng/dL (0.76-1.46); Glucose 104 mg/dL (70-99); HDL Direct 76 mg/dL (40-60); LDL Cholesterol Calculated 46 mg/dL (<130); Osmolality Calculated 292 mOsm/kg (285-295); Sodium 141 mmol/L (136-145); Thyroid Stimulating Hormone 0.95 uIU/mL (0.36-3.74); Total Protein 7.1 g/dL (6.4-8.2); Triglycerides 106 mg/dL (0-150)
[2023-08-03 00:24] LABS: Parathyroid Intact 121 pg/mL (16-77)
[2023-08-03 03:44] LABS: Vitamin D 25 Hydroxy 82 ng/mL (30-100)
== END 2023-08-01 07:18 | disposition home or self-care (01) ==
LOC: CHSLAB 07:20
PROVIDERS: PCP Internal Medicine; Visit Provider Internal Medicine Endocrinology, Diabetes & Metabolism
DX: R82.994 Hypercalciuria (principal); R79.89 Other specified abnormal findings of blood chemistry; R73.03 Prediabetes; E78.5 Hyperlipidemia, unspecified; E21.3 Hyperparathyroidism, unspecified; M85.80 Other specified disorders of bone density and structure, unspecified site
CPT/HCPCS: 36415; 80053; 80061; 82306; 83970; 84439; 84443

== ENCOUNTER 2023-08-02 07:26 | Outpatient (CLI) | payer OTHER, SELFPAY ==
--- NOTE | ~2023-08-02 | DEXA_ITS ---
? Bone Density Report? Name:? EN LEE Patient ID:??? [id number] Age:? 63 Sex:? Female Ethnicity:? White Date of : 1960 Indication: hyperparathyroidism; height loss; hysterectomy; Referring Provider: Karen Fish Study: Bone densitometry was performed. Exam Date: August 02, 2023 Accession number: [id number] Bone Density: Region? BMD??? T-score? Z-score?? Classification AP Spine(L1-L4)? 0.804?? -2.2? -0.6? Osteopenia Femoral Neck (Left)? 0.694?? -1.4? 0.0? Osteopenia Total Hip (Left)? 0.718?? -1.8? -0.7? Osteopenia Femoral Neck (Right)? 0.677?? -1.6? -0.1? Osteopenia Total Hip (Right)? 0.818?? -1.0? 0.1? Normal Femoral Neck Mean? 0.685?? -1.5? -0.1? Osteopenia Total Hip Mean? 0.768?? -1.4? -0.3? Osteopenia World Health Organization criteria for BMD impression classify patients as: Normal (T-score at or above -1.0), Osteopenia (T-score between -1.0 and -2.5), or Osteoporosis (T-score at or below -2.5). 10-year Fracture Risk(1): Major Osteoporotic Fracture? 7.5% Hip Fracture? 0.7% Reported Risk Factors: [place] (), Neck BMD=0.677, BMI=42.1 (1) FRAX? Version 3.08. Fracture probability calculated for an untreated patient. Fracture probability may be lower if the patient has received treatment. Clinical Information Provided by Patient: Has used the following medications: Vitamin D Has the following medical conditions: Hyperparathyroidism, Hysterectomy Patient maximum height was 66 Menopause Age: 35 No regular weight bearing exercise Drinks caffeinated beverages Onset of menses at age 12 Number of children 3 Impression: The patient has low bone mass, based on the Total Spine T-score. Discussion: BONE DENSITY IS LOW AT ONE OR MORE SKELETAL SITES. This patient's lowest T-score is low at one or more skeletal sites.? It meets the World Health Organization's (WHO) criteria for ?low bone mass?? (T-score between -1.0 and -2.5).? The patient's 10-year risk of fracture as calculated by FRAX is less than the threshold where pharmacological therapy is recommended by the National Osteoporosis Foundation (NOF).? However, all treatment decisions require clinical judgment and consideration of individual patient factors, including patient preferences, comorbidities, previous drug use, risk factors not captured in the FRAX model (e.g., frailty, falls, vitamin D deficiency, increased bone turnover, interval significant decline in bone density) and possible under or overestimation of fracture risk by FRAX. The patient should follow a healthful lifestyle (good nutrition with adequate calcium and vitamin D, and appropriate weight-bearing exercise). Follow-Up: Consider repeating this study in 2 to 3 years to reassess this patient's status, or sooner if there is some new clinical indication. Reported by: Dr. Donell Eagle on 08/02/2023 1:34:00 PM. [place]
== END 2023-08-02 07:27 | disposition home or self-care (01) ==
LOC: CHSIMG 07:28
PROVIDERS: PCP Internal Medicine; Visit Provider Internal Medicine Endocrinology, Diabetes & Metabolism
DX: M85.89 Other specified disorders of bone density and structure, multiple sites (principal); Z90.710 Acquired absence of both cervix and uterus; R29.890 Loss of height; E21.3 Hyperparathyroidism, unspecified; Z78.0 Asymptomatic menopausal state
CPT/HCPCS: 77080

== ENCOUNTER 2023-11-04 11:00 | Outpatient (CLI) | payer OTHER, SELFPAY ==
[2023-11-04 11:58] LABS: Albumin Level 3.7 g/dL (3.4-5.0); Anion Gap 6 mmol/L (4-12); Blood Urea Nitrogen 10 mg/dL (7-18); Calcium 9.3 mg/dL (8.5-10.1); Carbon Dioxide 34 mmol/L (21-32); Chloride 100 mmol/L (98-108); Estimated Glomerular Filt Rate > 60; Free T4 Free Thyroxine 0.88 ng/dL (0.76-1.46); Glucose 90 mg/dL (70-99); Osmolality Calculated 289 mOsm/kg (285-295); Phosphorus 2.9 mg/dL (2.6-4.7); Potassium 4.2 mmol/L (3.5-5.1); Sodium 140 mmol/L (136-145); Thyroid Stimulating Hormone 0.53 uIU/mL (0.36-3.74)
[2023-11-05 16:54] LABS: Parathyroid Intact 32 pg/mL (16-77)
== END 2023-11-04 11:01 | disposition home or self-care (01) ==
LOC: CHSLAB 11:02
PROVIDERS: PCP Internal Medicine; Visit Provider Internal Medicine Endocrinology, Diabetes & Metabolism
DX: E04.1 Nontoxic single thyroid nodule (principal); E21.3 Hyperparathyroidism, unspecified
CPT/HCPCS: 36415; 80069; 83970; 84439; 84443

== ENCOUNTER 2023-11-11 07:37 | Outpatient (CLI) | payer OTHER, SELFPAY ==
--- NOTE | ~2023-11-11 | MM_ITS ---
EXAMINATION: MM screening [facility] BI w laxmi HISTORY: Screening TECHNIQUE: Craniocaudal and mediolateral oblique 3-D tomosynthesis images were obtained and synthetic 2-D images were generated. CAD analysis was submitted and interpreted. COMPARISON: Comparison to multiple prior studies sequentially, with oldest reviewed study dated 10/24. BREAST PARENCHYMAL COMPOSITION: Not Dense. The breasts are almost entirely fatty. FINDINGS: There is no evidence of suspicious mass, calcification, or architectural distortion to sugg est malignancy in either breast. There has been no suspicious interval change. IMPRESSION: 1. No mammographic evidence of malignancy. 2. Recommend routine screening mammography in one year. BI-RADS Category 1: Negative Reviewed, dictated and finalized at location B.
== END 2023-11-11 07:38 | disposition home or self-care (01) ==
LOC: CHSIMG 07:40
PROVIDERS: PCP Internal Medicine; Visit Provider Internal Medicine
DX: Z12.31 Encounter for screening mammogram for malignant neoplasm of breast (principal)
CPT/HCPCS: 77063; 77067

== ENCOUNTER 2024-02-15 07:29 | Outpatient (CLI) | payer OTHER, SELFPAY ==
[2024-02-15 08:25] LABS: Albumin Level 3.7 g/dL (3.4-5.0); Anion Gap 7 mmol/L (4-12); Blood Urea Nitrogen 18 mg/dL (7-18); Calcium 9.4 mg/dL (8.5-10.1); Carbon Dioxide 33 mmol/L (21-32); Chloride 100 mmol/L (98-108); Estimated Glomerular Filt Rate 49; Glucose 116 mg/dL (70-99); Osmolality Calculated 292 mOsm/kg (285-295); Phosphorus 3.2 mg/dL (2.6-4.7); Potassium 3.2 mmol/L (3.5-5.1); Sodium 140 mmol/L (136-145)
[2024-02-16 15:38] LABS: Parathyroid Intact 38 pg/mL (16-77)
== END 2024-02-15 07:30 | disposition home or self-care (01) ==
LOC: CHSLAB 07:30
PROVIDERS: PCP Internal Medicine; Visit Provider Internal Medicine Endocrinology, Diabetes & Metabolism
DX: E21.3 Hyperparathyroidism, unspecified (principal); R79.89 Other specified abnormal findings of blood chemistry; E04.1 Nontoxic single thyroid nodule; R73.01 Impaired fasting glucose
CPT/HCPCS: 36415; 80069; 83970

== ENCOUNTER 2024-03-12 08:58 | Outpatient (CLI) | payer OTHER, SELFPAY ==
[2024-03-12 10:11] LABS: Anion Gap 8 mmol/L (4-12); Blood Urea Nitrogen 14 mg/dL (7-18); Calcium 9.6 mg/dL (8.5-10.1); Carbon Dioxide 31 mmol/L (21-32); Chloride 102 mmol/L (98-108); Estimated Glomerular Filt Rate 47; Glucose 106 mg/dL (70-99); Osmolality Calculated 292 mOsm/kg (285-295); Potassium 4.2 mmol/L (3.5-5.1); Sodium 141 mmol/L (136-145)
== END 2024-03-12 08:59 | disposition home or self-care (01) ==
LOC: CHSLAB 08:59
PROVIDERS: PCP Internal Medicine; Visit Provider Internal Medicine Endocrinology, Diabetes & Metabolism
DX: E87.6 Hypokalemia (principal)
CPT/HCPCS: 36415; 80048

== ENCOUNTER 2024-07-20 07:34 | Outpatient (CLI) | payer OTHER, SELFPAY ==
--- OUTSIDE RECORDS SUMMARY | 2024-07-20 07:39 | XMS_ITS | Clinical Summary ---
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 Gender Identity Not on file Sexual Orientation Not on file Plan of Treatment Health Maintenance Due Date Last Done Comments Cervical Cancer Screening Pa p Smear (Age 30 to 64) Every 3 Years 1960 Colorectal Cancer Screening Colonoscopy (10 Years) 1960 Annual Physical 05/16/1963 Hepatitis C 1978 DTaP, Tdap and Td Vaccines ( 1 - Tdap) 05/16/1979 Cervical Cancer Screening Pa p with HPV Testing (Age 30 to 64) Every 5 Years 1990 Cervical Cancer Screening with HPV 1990 Mammogram Screening 2000 Pneumococcal Vaccine: 50+ Ye ars (1 of 1 - PCV) 2010 Zoster Vaccines (1 of 2) 2010 COVID-19 Vaccine ( - 2023-2 5 season) 2023 RSV Immunization or 60+ Years (1 - 1-dose 75+ series) 05/16/2035 Meningococcal B Vaccine Aged Out No l onger eligible based on patient's age to complete this topic Meningococcal Vaccine Aged Out No radu hao eligible based on patient's age to complete this topic RSV Immunizations Under 20 Months Aged Out No longer eligible based on patient's age to complete this topic
--- OUTSIDE RECORDS SUMMARY | 2024-07-20 07:40 | XMS_ITS | Data Portability ---
Author Organization [place] - [employer], Main Office Address [address] [place] [address] Care Team Providers Care Cosmetic Surgeon Name Role Phone MOR BLACKBURN Primary Care Provider MOR BLACKBURN Referring Provider Assessment Encounter Date Assessment Date Assessment LastModified by Organization Details LastModified Time 04/01/2023 04/01/2023 impression: 1. Moderately severe osteoarthritis left hip. Patient had only mild osteoarthritis on the initial x-rays from November 2022 in the left hip. I believe she developed a an insufficiency subchondral fracture of the superior femoral head which has been associated with rapidly progressive joint space loss in the left hip. She has very limited in her activities because of this. Unfortunately she is not a good candidate for nonsteroidal anti-inflammatory medication because of her chronic kidney disease. Creatinine January was 1.1 just above normal GFR 50. Creatinine in May of 2022 was normal at 0.97 with a GFR 58. I have discussed options with her. I have explained her that the surgical treatment for the osteoarthritis in the left hip would be a total hip replacement. I discussed my preference for the direct anterior approach. I would require that she lose weight before surgery. Her current weight is 252 lb. I would recommend that she get her weight down to 220 lb which would correspond to a BMI of 39. I explained that there is higher risk of complications and patient's were obese and the surgery is more difficult and more prone to problems. I have given her the Ortho info handout on total hip arthroplasty as well as the direct anterior approach booklet for review. She her daughter is a dietitian and has introduced to the patient her the Mediterranean diet and her has actually lost over 30 lb since starting this a few months ago and patient is only lost 2 lb. I have recommended that she consider also avoiding simple carbs and explained that by Minimizing rice pasta, pizza dough, breads and sugary foods from her diet, this will reduce her daily caloric intake help with her weight loss. This will also potentially help with her being prediabetic. I have given her a handout explaining relationship between weight and calorie intake. I have discussed with her that at a minimum I think she should resume using the cane in right hand which may decrease her symptoms and decrease likely had of having a severe flare up. I suspect that since her symptoms are not as severe they were a couple of months ago that her bony edema Seen on MRI scanrhas started to heal. if her symptoms become severe enough she may need to consider use of walker until she is able lose weight. I discussed the option of using tramadol. She has problems with severe nausea with all narcotics. She may wish to try Tylenol at up to 3000 mg per day. I explained that an optimal rate of weight loss would be 1.5 lb per week each in every week. This will result in a 32 lb weight loss in 20 or 21 weeks. I will see her back in 3 months assess her progress. If anything changes I am happy to see her back sooner. 45 minutes were spent in total care this patient more than half the time spent in [id number] care Not available 04/02/2023 13:52:30 Plan of Treatment Reminders Order Date Submit Date Provider Last Modified By Organization Details Last Modified Time Details Appointments None recorded. Lab vitamin D, 25-hydroxy, total, serum [address]), [address] [place] [address], [address], 3 17:37:26 phosphorus, serum or plasma [address], [address] [place] [address], [address], 3 17:37:26 PTH (parathyroi d hormone), intact + calcium, serum or plasma [address], [facility] [place], [address], 3 17:37:26 TSH + free T4, serum [address]), [address] [place] [address], [address], 3 17:37:26 HbA1c (hemoglobin A1c), blood [address]), [address] [place], [address], 3 17:37:26 insulin, serum [address]), [address] [place] [address], [address], 3 17:37:26 CMP, serum or plasma [address]), [address] [place] [address], [address], 3 17:37:26 Referral None recorded. Procedures None recorded. Surgeries None recorded. Imaging XR, hip + pelvis, unilateral 2023 024 [email or web address] [facility] [place], [address], [place], [address], 4 15:05:21 SPECT-CT, parathyroid [address] [facility], [address] [place] [address], [address], 3 17:45:25 Medication Orders None recorded. Patient TargetsNo targets recorded. Patient InstructionsNo instructions recorded. Reason for Referral None Reported. Results Created Date Observation Date Name Description Value Unit Range Abnormal Flag Note LastModifiedBy Organization Detail LastModifiedTime 06/23/19 22 06/18/2021 DEXA, axial skele ton No observ ation record ed. [id number] [facility]) [address] [facility], [place], [address], 05/13/2022 00:43:04 03/09/20 23 02/24/2023 MRI, hip, w/o contr ast No observ ation record ed. [email or web address] Not Available 02/12 11:45:32 03/09/20 23 11/30/2022 XR, hip, unila teral , 2 or 3 view No observ ation record ed. [email or web address] Not Available 02/12 11:45:32 04/01/19 24 XR, hip + pelvi s, unila teral No observ ation record ed. [facility] [place] [address] [facility] [address], [place], [address], 04/02/2023 13:42:33 04/01/19 24 11/30/2022 XR, hip + pelvi s, unila teral No observ ation record ed. [email or web address] Not Available 2023 15:58:07 Result Notes None recorded. Problems Name Problem SNOMED Code Status Onset Date Resolution Date Notes Provider Name and Address Organization Details Recorded Time Vitamin D deficiency 49449200 Active 2021 Not Available [facility] 3 00:39:25 Primary hyperparat hyroidism 22977382 Active 2021 Not Available [facility] 3 00:39:25 Hyperparat hyroidism 25872843 Active 2021 Not Available [facility] 3 00:39:25 Prediabete s 405280773 Active 2021 Not Available [facility] 3 00:39:25 Pain of left knee joint 1199021985541 07 Active 2023 DREW Sepulveda, [place] - [facility] 4 10:43:38 Pain of left hip joint 0753855435697 00 Active 2023 Jonna Sim, RMA null, [place] - [facility] 11:15:37 Problem Notes None recorded. Procedures Surgical History Date Name Laterality Status Provider Name and Address Organization Details Recorded Time Hysterectomy completed Not Available [facility] 05/13/2022 00:36:36 Imaging Results Imaging Date Name Status LastModified by Organiz ation Details LastModified Time 06/18/2021 DEXA, axial skeleton completed [id number] [facility] [address] [place], [address], 05/13/2022 00:43:04 02/24/2023 MRI, hip, w/o contrast completed Information not available 03/09/2023 11:45:32 11/30/2022 XR, hip, unilateral, 2 or 3 view completed Information not available 03/09/2023 11:45:32 04/01/2023 XR, hip + pelvis, unilateral completed [facility] [place] [address] [facility] [address], [place], [address], 04/02/2023 13:42:33 11/30/2022 XR, hip + pelvis, unilateral completed [email or web address] Information not available 04/01/2023 15:58:07 Procedure Notes None recorded. Medical Equipment None Reported. Allergies Allergen ID Allergen Name Allergen Category Reaction Reaction Severity Criticality Documentation Date Start Date Code Code System Note Provider Name and Address Organization Details Recorded Time 29204 Substance with sulfonami de structure and antibacte rial mechanism of action (substanc e) medicatio n Not available Not available Not available 05/13/2022 19106 8003 SNOMED Not Available [facility] 00:42:41 Medications Name Sig Start Date Stop Date Status Note LastModified by Organization Details LastModified Time metformin 500 mg tablet active Not Available Not Available Not Available OneTouch Ultra Test strips use to check glucose once daily 04/01 completed Not Available Not Available Not Available losartan 25 mg tablet 04/01 completed Not Available Not Available Not Available hydrochlorot hiazide 12.5 mg capsule active Not Available Not Available N ot Available gabapentin 300 mg capsule 04/01 completed Not Available Not Available Not Available diclofenac sodium 75 mg tablet,delay ed release 04/01 completed Not Available Not Available Not Available methylpredni solone 4 mg tablets in a dose pack 04/01 completed Not Available Not Available Not Available metformin ER 500 mg tablet,exten ded release 24 hr one tablet daily at dinner x 90 days 04/01 completed Not Available Not Available Not Available cyclobenzapr ine 5 mg tablet 04/01 completed Not Available Not Available Not Available rosuvastatin 20 mg tablet active Not Available Not Available Not Available hydrochlorot hiazide 12.5 mg tablet active Not Available Not Available No t Available OneTouch Ultra2 Meter 04/01 completed Not Available Not Available Not Available Vitals Date Recorded Body mass index (BMI) Body height Oxygen saturation Oxygen saturation in Arterial blood by Pulse oximetry Heart rate Body temperature Body weight Systolic blood pressure Diastolic blood pressure Provider Name and Address Organization Details Last Updated DateTime 2 40.9 kg/m2 165.1 cm 97.01 % 97.01 % 97 /min 97.9 [degF] 592511. 72 g 118 mm[Hg] 70 mm[Hg] Not Available [facility] 3 00:37:15 Date Recorded Body mass index (BMI) Body height Oxygen saturation Oxygen saturation in Arterial blood by Pulse oximetry Heart rate Body temperature Body weight Systolic blood pressure Diastolic blood pressure Provider Name and Address Organization Details Last Updated DateTime 2 40.9 kg/m2 165.1 cm 97 % 97 % 88 /min 97.8 [degF] 802596. 72 g 115 mm[Hg] 90 mm[Hg] Not Available [facility] 3 00:37:15 Date Recorded Body mass index (BMI) Body height Oxygen saturation Oxygen saturation in Arterial blood by Pulse oximetry Heart rate Body temperature Body weight Systolic blood pressure Diastolic blood pressure Provider Name and Address Organization Details Last Updated DateTime 2 41.3 kg/m2 165.1 cm 96 % 96 % 90 /min 98.1 [degF] 467492. 91 g 120 mm[Hg] 80 mm[Hg] Not Available [facility] 3 00:37:15 Date Recorded Body height Body mass index (BMI) Body weight Body temperature Respiratory rate Heart rate Systolic blood pressure Diastolic blood pressure Provider Name and Address Organization Details Last Updated DateTime 3 165.1 cm 41.8 kg/m2 061179. 12 g 97.6 [degF] 18 /min 107 /min 167 mm[Hg] 97 mm[Hg] [facility] [employer] 3 17:23:32 Date Recorded Body height Body mass index (BMI) Body weight Provider Name and Address Organization Details Last Updated DateTime 04/01/2023 161.29 cm 43.9 kg/m2 148328.28 g [facility] [employer] [facility] 04/01/2023 10:57:27 Social History Question Answer Notes LastModified by Organizat ion Details LastModified Time Tobacco Smoking Status Never Smoker Not Available [facility] 05/13/2022 00:35:49 What Is Your Level Of Alcohol Consumption? None [id number] Information not available 05/13/2022 In The 14 Days Before Symptom Onset, Have You Had Close Contact With A Laboratory-confirm ed COVID-19 While That Case Was Ill? No [id number] Information not available 05/13/2022 In The 14 Days Before Symptom Onset, Have You Had Close Contact With A Person Who Is Under Investigation For COVID-19 While That Person Was Ill? No [id number] Information not available 05/13/2022 Do You Use Any Illicit Or Recreational Drugs? No [id number] Information not available 05/13/2022 Have You Recently Traveled Abroad? No [id number] Information not available 05/13/2022 Sex: Female Functional Status None recorded. Mental Status None recorded. Family History Relationship Description Onset Age of this Age Resolved Age Notes LastModified by Organization Details LastModified Time Father Malignant neoplasm of lung [id number] Not available 05/13/2022 00:36:37 Paternal Grandmother Heart disease [id number] Not available 05/13/2022 00:36:38 Medical History Condition Response BLINDNESS N RHEUMATIC FEVER N MRSA N INFECTIOUS DISEASE N LUNG DISEASE/DISORDER N HEART ARRHYTHMIA N INSOMNIA N HISTORY OF DRUG ABUSE N RADIATION / CHEMOTHERAPY N COPD N HIGH CHOLESTEROL / HYPERLIPIDEMIA N HYPERTHYROIDISM N EYE PROBLEMS N BLOOD DISEASES N SURGERY N EDEMA N HYPOTHYROIDISM N SHINGLES N DEPRESSION (INCLUDING POST ) N HAVE YOU BEEN HOSPITALIZED OR SEEN IN [facility] IN THE PAST YEAR ? N STROKE/TIA N THYROID DISEASE N BENIGN PROSTATIC HYPERPLASIA N OBESITY Y GERD/NAUSEA N EXCESSIVE PERSPIRATION N ANEURYSM N OSTEOPOROSIS N ARTHRITIS Y USE OF BLOOD THINNERS N NO SIGNIFICANT PAST MEDICAL HISTORY N SKIN PROBLEMS N DIABETES, TYPE N PARATHYROID DISEASE N BLOOD CLOTS N HEPATITIS / LIVER DISEASE N GOUT N ALZHEIMER'S DISEASE N HERPES N RETINOPATHY N SEIZURES/EPILEPSY N HEADACHES/MIGRAINES N GI PROBLEMS N Low Testosterone N DIZZINESS N KIDNEY DISEASE N HEART DISEASE/HEART PROBLEMS N AIDS/HIV N LIVER DISEASE N HYPERTENSION N CANCER: SPECIFY N TOURETTE'S N BLOOD TRANSFUSION N ANEMIA/BLOOD DISORDER N ATRIAL FIBRILLATION N AUTOIMMUNE DISEASE N TUBERCULOSIS N GLAUCOMA N Gynecological HistoryNo gynecological history recorded. Obstetrics History GPAL:G 0 P 0 0 0 0 Past Encounters Encounter ID Performer Location Encounter Start Date Encounter Closed Date Diagnosis/Indication Diagnosis SNOMED-CT Code Diagnosis ICD10 Code Diagnosis Note [id number] [facility] [place] [address] [place] [id number] 06/15/2021 00:00:00 06/15/2021 12:29:25 [id number] [facility] [place] [address] [place] [id number] 10/16/2021 00:00:00 10/16/2021 10:35:13 [id number] [facility] [place] [address] [place] [id number] 02/15/2022 00:00:00 02/15/2022 18:11:43 [id number] Julieta José MD [facility] [place] [address] [place] [id number] 07/22/2022 17:09:47 07/22/2022 17:45:24 Primary hyperparathyroidism 30270555 E21.0 Patient is not taking any additional sources of calcium such as tums or rolaids or calcium containing antacids and was encouraged to abstain from these supplement s. Her urinary calcium is elevated with CaCL of >0.01 so very consistent with primary hyperparat hyroidism. Patient is willing to undergo parathyroi dectomy to treat her parathyroi d disease however discussed with patient if her serum calcium is increasing to above 11 to 11.5 mg/dL or higher and she has evidence of severe bone loss especially at cortical bone site (T score of -2.5 or worse) these are indicators she is a surgical candidate and guidelines do recommend parathyroi dectomy in these cases. Will send for SPECT-CT scan to see if there is localizati on of adenoma. Prediabetes 235384829 R7 3.03 continue metformin daily. Discussed carb counting and how to read food labels. Recommende d patient to utilize the diabetesfo [employer] from the ADA website to help with food preparatio n as this presents ideal carb content per meal so this will make carb counting much easier for patient. Recommende d she incorporat e natural insulin workplace relations adviser s such as pears, apples, cinnamon, suyapa and sweet potatoes to help mobilize her endogenous insulin. Recommende d up to 150 minutes of moderate level activity/e xercise weekly. Spent up to 25 minutes preparing to see the patient (eg, review of tests), obtaining and/or reviewing separately obtained history, performing a medically appropriat e examinatio n and evaluation , counseling and educating the patient, ordering medication s, tests, along with documentin g clinical informatio n in the electronic health record, independen tly interpreti ng results and communicat ing results to the patient. RTC in 6 months. Patient was provided a handwritte n lab order which contains our fax number. If she chooses to go outside of the [facility] system to obtain labwork she was advised to provide our fax number and my informatio n to the lab she will be obtaining labwork from in order to have her labs properly forwarded over for me to review so there is no loss of follow up due to use of outside network. She was also advised to contact our clinic informing us that she has completed her labwork so we are aware we will need to reach out to the appropriat e laboratory to request her results be forwarded to us so I might have the ability to review and make further medical decision making in her case. She voiced understand ing. [id number] Mynor Anderson MD [facility] [place] [facility] [address] [facility] [address] [place] [address] 04/01/2023 10:13:14 04/04/2023 15:05:21 Pain of left hip joint 2056463800 64198 M25.552 Health Concerns Section Related Observation LastModified by Organization Detai ls LastModified Time None Recorded Concern Status LastModified by Organization Details LastModified Time None Recorded Advance Directives Directive None Recorded Payers Encounter Date Sequence Insurance Name Policy Number Policy Logan Covered Member ID Logan Member ID Guarantor Name 07/22/2022 1 [facility] [id number] Adry [facility] [id number] Adry Fernandez 04/01/2023 1 [facility] [id number] [facility] [id number] Adry Fernandez Notes Date Note Type Note Provider Name and Address Organization Details Recorded Time 3 text/html 62 yo female comes in for follow up in management of primary hyperparathyroidism, impaired fasting glucose and vit D def along with osteopenia. last seen in Feb at that time we continued hctz for hypercalciuria we continued vitamin D 3 5000 IU daily for low stores. we continued metformin once daily for glucose control. She has wished to monitor her parathyroid disease and hasn't wanted to discuss surgery. She has no dizziness, lightheadedness, fatigue, depression or off balance sensation. She has no hx of kidney stones or broken bones. She is tolerating metformin well. labs from 06/03:24 hour urine calcium 228 mg/24 hourvit D 56 ng/mLinsulin 10.9 uU/mlPTH 159 pg/mlPO4 2.4 ng/mlcalcium 10.1 mg/dLCr normalLFT normalglucose 134 mg/dLa1c 5.9% Julieta José MD [address] [facility], [facility] [address], [place], [address], [place] - [facility] 07/22/2022 18:59:37 4 text/html patient is a 62-year-old female referred by Dr. Blackburn for evaluation of her left hip pain. She developed severe pain in the left hip in November of 2022, 4 months ago. The pain is in the front of the hip and groin lateral hip and down the anterior thigh toward the knee. Walking and climbing stairs were the worst. She had severe start of pain. When she would 1st stand on her leg she felt like the leg was somewhat numb and she was unable to move it. She has been limping. With the onset of her severe symptoms she started using a cane in the right hand which helps some. She also used diclofenac 75 mg twice daily which was helpful. She had blood work the following month and it showed slight increase in her BUN or creatinine indicating some kidney impairment and she was advised to minimize her use of diclofenac following that. She has been using Aleve instead and I explained that the Aleve may have adverse effects on her kidneys as well. Patient underwent physical therapy for her back and hip and it did help some. She had x-rays which I reviewed from 11/30/2022 which showed only mild osteoarthritis changes left hip. An MRI scan was obtained on 02/24/2023 which demonstrated severe patchy edema in the femoral head and femoral neck moderate effusion and a small area of sclerosis thickening of the subchondral bone line at the superior femoral head consistent with surface insufficiency fracture. Her pain is not as severe as it was back in the latter months of this past year. Currently her chief complaint is pain lateral hip and anterior thigh with weight-bearing and certain movements. Her past medical history is significant for being prediabetic, extreme obesity, hypertension high cholesterol. She saw Dr. José in July of last year and has diagnosis of primary hyperparathyroidism with elevated calcium levels and has discussed the option of parathyroidectomy with Dr. José. Mynor Anderson MD [address] [place] [address], [place] [address], [place], [address], [place] - [facility] [employer] [facility] 04/02/2023 13:52:50 OBGyn Episode No OBEpisode recorded.
--- OUTSIDE RECORDS SUMMARY | 2024-07-20 07:40 | XMS_ITS | Encounter Summary ---
Author Organization [facility] Address [address] [place] [address] Care Team Providers Care Video Recorder Mechanic Name Role Phone Marquez Khan MD Primary Care Provider [phone] Encounter Details Date Type Department Care Team (Latest Contact Info) Description 07/12/2024 Orders Only [facility] - Endocrinology [address] [place] [address], [place] [id number] Shree Fofana MD [address] [place] [address] 2L [place] [address] Thyroid nodule; Hypercalcemia; Primary hyperparathyroidism (HCC) Social History Tobacco Use Types Packs/Day Years Used Date Smoking Tobacco: Never Smokeless Tobacco: Never Alcohol Use Standard Drinks/Week Comments Yes 0 (1 standard drink = 0.6 oz pur e alcohol) rare social occasion AUDIT-C Answer Date Recorded Q1: How often do you have a drink containing alc ohol? Monthly or less 10/13/2023 Q2: How many drinks containi ng alcohol do you have on a typical day when you are drinking? 1 or 2 10/13/2023 Q3: How often do you have si x or more drinks on one occasion? Never 10/13/2023 Overall Financial Resource Strain (CARDIA) Answe r Date Recorded How hard is it for you to pa y for the very basics like food, housing, medical care, and heating? Not very hard 10/13/2023 [facility] of Occupat ional Health - Occupational Stress Questionnaire Answer Date Recorded Do you feel stress - tense, restless, nervous, or anxious, or unable to sleep at night because your mind is troubled all the time - these days? Not at all 10/13/2023 Hunger Vital Sign Answer Date Recorded Within the past 12 months, y ou worried that your food would run out before you got the money to buy more. Never true 10/13/19 24 Within the past 12 months, t he food you bought just didn't last and you didn't have money to get more. Never true 10/13/2023 PRAPARE - Transportation Answer Date Re corded In the past 12 months, has l ack of transportation kept you from medical appointments or from getting medications? No 03/2023 In the past 12 months, has l ack of transportation kept you from meetings, work, or from getting things needed for daily living? No 10/13/2023 Housing Stability Vital Sign Answer Jeffrey e Recorded In the last 12 months, was t here a time when you were not able to pay the mortgage or rent on time? No 10/13/2023 In the last 12 months, how many places have you lived? 1 10/13/2023 In the last 12 months, was t here a time when you did not have a steady place to sleep or slept in a intermediate (including now)? 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 Answer Date of Assessment Author No 10/13/2023 5:06 PM Ian Johnston, CHARISSE * Is person blind or have serious difficulty seeing? Answer Date of Assessment Author No 10/13/2023 5:06 PM Ian Johnston, RN * Does person have serious difficulty walking/climbing stairs? Answer Date of Assessment Author No 10/13/2023 5:06 PM Ian Johnston, RN * Does person have difficulty dressing/bathing? Answer Date of Assessment Author No 10/13/2023 5:06 PM Ian Johnston, RN * Does person have difficulty doing errands alone? Answer Date of Assessment Author No 10/13/2023 5:06 PM CDT Ina Jarvis, RN documented as of this encounter Mental Status * Does person have difficulty concentrating/remembering/making decisions? Answer Entry Date Author No 10/13/2023 5:06 PM Ian Johnston RN documented in this encounter Plan of Treatment Not on file documented as of this encounter Visit Diagnoses Diagnosis Thyroid nodule Nontoxic uninodular goiter Hypercalcemia Primary hyperparathyroidism (HCC) Primary hyperparathyroidism documented in this encounter Care Teams Video Recorder Mechanic Relationship Specialty Start Date End Date Marquez Khan MD [address] [place], [place] [id number] PCP - General Internal Medicine 05/04/23 documented as of this encounter
--- OUTSIDE RECORDS SUMMARY | 2024-07-20 07:40 | XMS_ITS | Clinical Summary ---
Author Organization [facility] Address [address] [place] [address] Care Team Providers Care Systems Navigator Name Role Phone Marquez Khan MD Primary Care Provider [phone] Source Comments [facility],non-owned Affiliates and Associated Physician Practices is amultiple site organization consisting of ambulatory clinics and hospital sitesin [place], [place], [place] and [place]. This disclosure is being madepursuant to the Care Everywhere program and may not contain all information available regarding this patient. Last updated 17.[facility] Allergies Active Allergy Reactions Criticality Noted Date Comments Pantoprazole Diarrhea 07/07/2023 Sulfacetamide Rash,Itching Medium 05/04/2023 Medications * Be aware that medications may not be up to date on this document. Alwaysverify current medications with the patient. hydroCHLOROthiazi de (Microzide) 12.5 MG capsule 03/15/19 24 Active metFORMIN (Glucophage) 500 MG tablet 04/11/19 24 Active rosuvastatin (Crestor) 20 MG tablet 04/20/19 24 Active Cholecalciferol (Vitamin D) 125 MCG (5000 UT) CAPS Take 1 (one) capsule by mouth once daily Active oxyCODONE, immediate release, (Roxicodone) 5 MG tabletIndications :Other acute postprocedural pain TAKE ONE TABLET BY MOUTH EVERY 4 HOURS NEEDED 12 tablet 10/14/19 24 Active acetaminophen (Tylenol) 325 MG tablet Take 2 (two) tablets by mouth every 6 hours as needed for Fever or Pain Maximum allowable Acetaminophen amount = 4 Grams (4000 mg) / 24 hours. 30 tablet 10/14/19 24 024 Discontin ued(No Pharm No AVS) ibuprofen (Motrin) 600 MG tablet Take 1 (one) tablet by mouth every 6 hours as needed for Pain 15 tablet 10/14/19 24 024 Discontin ued(No Pharm No AVS) Active Problems Problem Noted Date Diagnosed Date Elevated cholesterol 07/07/2023 Osteoarthritis 07/07/2023 Osteopenia 07/07/2023 Hypercalcemia 07/07/2023 Thyroid nodule 07/07/2023 Hyperparathyroidism 05/04/2023 Vitamin D deficiency 10/16/2021 07/07/2023 Prediabetes 06/15/2021 07/07/2023 Primary hyperparathyroidism 06/15/202106/13 Obesity Diverticulosis Resolved Problems Problem Noted Date Diagnosed Date Resolved Date History of diabetes mellitus 07/08/2023 Overview (07/08/2023): prediabetic Encounters Date Type Department Care Team Description 07/12/2024 Orders Only [facility] - Endocrinology [address] [facility], [place]), [place] [address] Shree Fofana MD Thyroid nodule; Hypercalcemia; Primary hyperparathyroidism (HCC) from Last 3 Months Family History Medical History Relation Name Comments Cancer - Lung Father CAD (Coronary Artery Disease) Maternal Grandmother CVA Maternal Grandmother Arthritis - Osteo Mother CAD (Coronary Artery Disease) Paternal Grandmother Diabetes - Type 1 Neg Hx Diabetes - Type 2 Neg Hx Thyroid Disease Neg Hx Relation Name Status Comments Father Maternal Grandmother Mother Paternal Grandmother Sister 1 Alive Sister 2 Alive Sister 3 Social History Tobacco Use Types Packs/Day Years Used Date Smoking Tobacco: Never Smokeless Tobacco: Never Tobacco Cessation:Counseling Given: Not Answered Alcohol Use Standard Drinks/Week Comments Yes 0 [...] care, and heating? Not very hard 10/13/2023 [facility] of Occupat ional Health - Occupational Stress [...] place to sleep or slept in a fpc (including now)? 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 Gender Identity Not on file Sexual Orientation Not on file Last Filed Vital Signs Vital Sign Reading Time Taken Comments Blood Pressure 135/86 01/06/2024 12:51 PM CDT Pulse 111 01/06/2024 12:51 PM CDT Temperature 36.4 C (97.5 F) 10/14/2023 8:07 AM CDT Respiratory Rate 16 10/14/2023 8:07 AM CDT Oxygen Saturation 94% 01/06/2024 12:51 PM CDT Inhaled Oxygen Concentration 45% 10/13/2023 1 2:58 PM CDT Weight 114.8 kg (253 lb) 01/06/2024 12:51 PM CDT Height 162.6 cm (5' 4 ) 11/11/2023 10:18 AM CDT Body Mass Index 43.43 11/11/2023 10:18 AM CDT Plan of Treatment Health Maintenance Due Date Last Done Comments COLOGUARD (AGES 45-75) - COLON CA SCREENING 1960 COLON MONITORING 1960 COLONOSCOPY - COLON CA SCREENING 1960 CT COLONOGRAPHY - COLON CA SCREENING 1960 Colorectal Cancer Screening 1960 FIT - COLON CA SCREENING 1960 FLEX SIG - COLON CA SCREENING 1960 MAMMOGRAM 1960 PAP SMEAR 1960 HIV SCREENING 05/16/1975 HEPATITIS C SCREENING 05/11/1978 DTAP/TDAP/TD VACCINES (1 - Tdap) 05/16/1979 PNEUMOCOCCAL VACCINE 50+ (1 of 1 - PCV) 2010 ZOSTER VACCINE (1 of 2) 2010 Respiratory Syncytial Virus (RSV) Vaccine Pt: or over 60 yrs (1 - Risk 60-74 years 1-dose series) 2020 COVID-19 VACCINE (1 - 2023- season) 2023 DEPRESSION SCREENING 03/14/2024 INFLUENZA VACCINE (Season Ended) 2024 SCREENING FOR DIABETES 10/12/2026 , 10/13/2023, 05/13/2023, Additional history exists HEPATITIS B VACCINE Aged Out No longe r eligible based on patient's age to complete this topic HIB VACCINE Aged Out No longer eligi ble based on patient's age to complete this topic HPV VACCINE Aged Out No longer eligi ble based on patient's age to complete this topic MENINGOCOCCAL (Group B) VACCINE SHARED DECISION-MAKING Aged Out No longer eligible based on patient's age to complete this topic MENINGOCOCCAL GROUPS A/C/Y/W VACCINE Aged Out No longer eligible based on patient's age to complete this topic Procedures Procedure Name Priority Date/Time Associated Diagnosis Comments GLUCOSE - POINT OF CARE Routine 10/13/2023 1:03 PM CDT from Last 3 Months or Most Recently Relevant to Health Maintenance Results * (ABNORMAL) GLUCOSE - POINT OF CARE (10/13/2023 1:03 PM CDT) Glucose WB/POC 129(H) 70 - 115 mg/dL 10/13/2023 1:08 PM CDT [facility] Specimen Type Cap Fingerstick 2023 1:08 PM CDT [facility] Blood BLOOD SPECIMEN / Unknown 10/13/2023 1:03 PM CDT 10/13/2023 1:08 PM CDT Mayur Kinsey MD LAB - POINT OF CARE ORDERABLE S Final Result [facility] [address] [place] [address], [facility] [phone] from Last 3 Months or Most Recently Relevant to Health Maintenance Insurance [facility] Advance Directives * Full Code (Latest Code Status on File) Date Activated Date Inactivated Comments 10/13/2023 1:17 PM 10/14/2023 12:24 PM Care Teams Systems Navigator Relationship Specialty Start Date End Date Marquez Khan MD [address] [place] [address] PCP - General Internal Medicine 05/04/23
--- OUTSIDE RECORDS SUMMARY | 2024-07-20 07:40 | XMS_ITS | Continuity of Care Document ---
Author Organization [facility] Address [address] [place] [address] [place] [address] Phone Care Team Providers Care Replanting Machine Crew Name Role Phone Merlene Rodgers Unavailable Unavailable Procedures Procedure Date Office/outpatient Visit, [facility] Fundus Photography W/ Report Optic Nerve Topography Optic Nerve Topography Visual Field Examination(s) Office/outpatient Visit, [facility] Corneal Pachymetry Advance Directives Directive Yes / No Effective Date File Name No Information Encounters Encounter Description Practice Location Reason(s) For Visit Diagnoses Date Provider Providers Copied on Encounter Office/outpat ient Visit, [facility], [address] [place], [place] [address], [place], [place], [id number], tel:[phone] [facility] No Information 8 Ana Maria Ray [address] [facility] , [facility] [address], [place], [address], . tel:[phone] Referring Provider: Peter Beckett [address], [place], [address]. tel:[phone] [facility], [address] [place] [address] [address], [place], [place], [address], tel:[phone] [facility] No Information 8-200 8 Ana Maria Ray [address], [place], [address], [place]. tel:[phone] Referring Provider: Peter [address], [place], [address]. tel:[phone] [facility], [address] [place] [address] [address], [place], [place], [address], tel:[phone] [facility] No Information 8 Ana Maria Blunt. [address] [facility] , [address], [place], [address], [place]. tel:[phone] Referring Provider: Peter Beckett [facility] [address], [place], [address]. tel:[phone] Office/outpat ient Visit, [facility], [address], [place], [place], [address], tel:[phone] [facility] No Information 8 Ana Maria Blunt. [facility] , [address], [place], [address], [place]. tel:[phone] Referring Provider: Peter Beckett [facility] [address], [place], [address]. tel:[phone] Family History Family Member Type Diagnosis Age [...]
[2024-07-20 08:21] LABS: Microalbumin Urine Random 55.5 mg/L
[2024-07-20 10:27] LABS: Albumin Level 4.4 g/dL (3.5-5.1); Anion Gap 4 mmol/L (4-12); Blood Urea Nitrogen 16 mg/dL (7-17); Calcium 9.1 mg/dL (8.4-10.2); Carbon Dioxide 36 mmol/L (22-30); Chloride 99 mmol/L (98-107); Cholesterol 137 mg/dL (0-200); Estimated Glomerular Filt Rate > 60; Glucose 120 mg/dL (65-110); HDL Direct 83 mg/dL; LDL Cholesterol Calculated 36 mg/dL (<130); Osmolality Calculated 290 mOsm/kg (285-295); Phosphorus 3.2 mg/dL (2.5-4.5); Potassium 3.1 mmol/L (3.4-5.0); Sodium 139 mmol/L (137-145); Triglycerides 88 mg/dL (<150)
[2024-07-20 10:40] LABS: Free T4 Free Thyroxine 2.06 ng/dL (0.78-2.19)
[2024-07-23 12:02] LABS: Vitamin D 25 Hydroxy 89 ng/mL (30-100)
== END 2024-07-20 07:35 | disposition home or self-care (01) ==
LOC: CHSLAB 07:35
PROVIDERS: PCP Internal Medicine; Visit Provider Internal Medicine Endocrinology, Diabetes & Metabolism
DX: R79.89 Other specified abnormal findings of blood chemistry (principal); E21.3 Hyperparathyroidism, unspecified; E04.1 Nontoxic single thyroid nodule; E88.810 Metabolic syndrome; R73.03 Prediabetes
CPT/HCPCS: 36415; 80061; 80069; 82043; 82306; 84439; 84443

== ENCOUNTER 2024-09-24 11:34 | Outpatient (CLI) | payer OTHER, SELFPAY ==
--- OUTSIDE RECORDS SUMMARY | 2024-09-24 11:38 | XMS_ITS | Continuity of Care Document ---
Author Organization [facility] Address [address] [place] [address] [place] [address] Phone Care Team Providers Care Bowling Alley Attendant Name Role Phone Merlene Rodgers Unavailable Unavailable Procedures Procedure Date Office/outpatient Visit, [facility] Fundus Photography W/ Report Optic Nerve Topography Optic Nerve Topography Visual Field Examination(s) Office/outpatient Visit, [facility] Corneal Pachymetry Advance Directives Directive Yes / No Effective Date File Name No Information Encounters Encounter Description Practice Location Reason(s) For Visit Diagnoses Date Provider Providers Copied on Encounter Office/outpat ient Visit, Est [facility], [address] [place], [place] [address] [address], [place], [place], [id number], tel:[phone] [facility] No Information 8 Ana Maria Ray [address] [facility] , [facility] [address], [place], [address], . tel:[phone] Referring Provider: Peter Beckett [address], [place], [address]. tel:[phone] [facility], [address] [place] [address] [address], [place], [place], [address], tel:[phone] [facility] No Information 8-200 8 Ana Maria Ray [address], [place], [address], [place]. tel:[phone] Referring Provider: Peter [address], [place], [address]. tel:[phone] [facility], [address] [place] [address] [address], [place], [place], [address], tel:[phone] [facility] No Information 8 Ana Maria Blunt. [address] [facility] , [address], [place], [address], [place]. tel:[phone] Referring Provider: [facility] [address], [place], [address]. tel:[phone] Office/outpat ient Visit, [facility], [address] [facility] [address], [place], [place], [address], tel:[phone] [facility] No Information 8 Ana Maria Blunt. [facility] , [address], [place], [address], [place]. tel:[phone] Referring Provider: Peter [facility] [address], [place], [address]. tel:[phone] Family History Family Member Type Diagnosis Age At Onset No Information Payers Payer name Insurance type Covered libertarian ID Authoriza tion(s) No Information Social History [...]
--- OUTSIDE RECORDS SUMMARY | 2024-09-24 11:38 | XMS_ITS | Clinical Summary ---
Author Organization [facility] [employer] [facility] Address [address] [place] [address] Care Team Providers Care Sorting Cows Worker Name Role Phone Marquez Khan MD Primary Care Provider [phone] Source Comments [facility] [employer],non-owned Affiliates and Associated Physician Practices is amultiple site organization consisting of ambulatory clinics and hospital sitesin [place], [place], [place] and [place]. This disclosure is being madepursuant to the Care Everywhere program and may not contain all information available regarding this patient. Last updated 17.[facility] [employer] Allergies Active Allergy Reactions Criticality Noted Date [...] [facility] - Endocrinology [address] [facility], [place] [address] Shree Fofana MD Thyroid nodule; Hypercalcemia; Primary [...] care, and heating? Not very hard 10/13/2023 [facility] of Occupat ional Health - Occupational Stress [...] place to sleep or slept in a [place] facility (including now)? 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 Gender Identity Not on file Sexual Orientation [...] 12:51 PM CDT Height 162.6 cm (5' 4) 11/11/2023 10:18 AM CDT Body Mass Index [...] - COLON CA SCREENING 1960 MAMMOGRAM 1960 HIV SCREENING 05/16/1975 HEPATITIS C SCREENING 05/11/1978 DTAP/TDAP/TD VACCINES (1 - Tdap) 05/16/1979 PAP SMEAR 1981 PNEUMOCOCCAL VACCINE 50+ (1 of 1 - PCV) 2010 ZOSTER VACCINE (1 of 2) 2010 Respiratory Syncytial Virus (RSV) Vaccine Pt: or over 60 yrs (1 - Risk 60-74 years 1-dose series) 2020 COVID-19 VACCINE (1 - season) 2023 DEPRESSION SCREENING 03/14/2024 INFLUENZA VACCINE (#1) 2024 SCREENING FOR DIABETES 10/12/2026 , 10/13/2023, [...] - 115 mg/dL 10/13/2023 1:08 PM CDT [facility] Specimen Type Cap Fingerstick 2023 1:08 PM CDT [facility] Blood BLOOD SPECIMEN / Unknown 10/13/2023 1:03 PM CDT 10/13/2023 1:08 PM CDT Mayur Kinsey MD LAB - POINT OF CARE ORDERABLE S Final Result [facility] [address] [place] [address], [facility] [phone] from Last 3 Months or Most Recently Relevant to Health Maintenance Insurance [facility] Advance Directives * Full Code (Latest Code Status on File) Date Activated Date Inactivated Comments 10/13/2023 1:17 PM 10/14/2023 12:24 PM Care Teams Sorting Cows Worker Relationship Specialty Start Date End Date Marquez Khan MD [address] [place] [address] PCP - General Internal Medicine 05/04/23
== END 2024-09-24 11:35 | disposition home or self-care (01) ==
LOC: CHSLAB 11:35
PROVIDERS: PCP Internal Medicine; Visit Provider Internal Medicine
DX: N39.0 Urinary tract infection, site not specified (principal)
CPT/HCPCS: 99199; 87086

== ENCOUNTER 2024-10-06 08:40 | Emergency (ER) | payer OTHER, SELFPAY ==
[2024-10-06 08:40] VITALS: BP 130/77; PULSE 102; RESP 16; TEMP 36.7; O2SAT 95
--- OUTSIDE RECORDS SUMMARY | 2024-10-06 08:42 | XMS_ITS | Continuity of Care Document ---
Author Organization [facility] Address [address] [place] [address] [place] [address] Phone Care Team Providers Care Lidar Analyst Name Role Phone Merlene Rodgers Unavailable Unavailable Procedures Procedure Date Office/outpatient Visit, [facility] Fundus Photography W/ Report Optic Nerve Topography Optic Nerve Topography Visual Field Examination(s) Office/outpatient Visit, [facility] Corneal Pachymetry Advance Directives Directive Yes / No Effective Date File Name No Information Encounters Encounter Description Practice Location Reason(s) For Visit Diagnoses Date Provider Providers Copied on Encounter Office/outpat ient Visit, Est [facility], [address] [place], [place] [address], [place], [place], [id number], tel:[phone] [facility] No Information 8 Ana Maria Ray [address] [facility] , [facility] [address], [place], [address], . tel:[phone] Referring Provider: Peter Beckett [address], [place], [address]. tel:[phone] [facility], [address] [place] [address] [address], [place], [place], [address], tel:[phone] [facility] No Information 8-200 8 Ana Maria Ray [address], [place], [address], [place]. tel:[phone] Referring Provider: Peter [address], [place], [address]. tel:[phone] [facility], [address] [place] [address] [address], [place], [place], [address], tel:[phone] [facility] No Information 8 Ana Maria Blunt. [address] [facility] , [address], [place], [address], [place]. tel:[phone] Referring Provider: Peter [facility] [address], [place], [address]. tel:[phone] Office/outpat ient Visit, [facility], [address] [facility], [place], [place], [address], tel:[phone] [facility] No Information 8 Ana Maria Blunt. [facility] , [address], [place], [address], [place]. tel:[phone] Referring Provider: Peter [facility] [address], [place], [address]. tel:[phone] Family History Family Member Type Diagnosis Age At Onset No Information Payers Payer name Insurance type Covered alliance party ID Authoriza tion(s) No Information Social [...]
--- OUTSIDE RECORDS SUMMARY | 2024-10-06 08:42 | XMS_ITS | Clinical Summary ---
Author Organization [facility] Address [address] [place] [address] Care Team Providers Care Ekg Technician Name Role Phone Marquez Khan MD Primary Care Provider Source Comments [facility],non-owned Affiliates and Associated Physician Practices is amultiple site organization consisting of ambulatory clinics and hospital sitesin [place] and [place]. This disclosure is being madepursuant to the Care Everywhere program and may not contain all information available regarding this patient. Last updated 17.[facility] Allergies Active Allergy Reactions Criticality Noted Date [...] Only [facility] - Endocrinology [address] [facility], [place] [address] Shree Fofana MD Thyroid nodule; Hypercalcemia; Primary [...] care, and heating? Not very hard 10/13/2023 [facility] of Occupat ional Health - Occupational Stress [...] place to sleep or slept in a chcf (including now)? 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 Gender Identity Not on file Sexual Orientation [...] - 115 mg/dL 10/13/2023 1:08 PM CDT [facility] Specimen Type Cap Fingerstick 2023 1:08 PM CDT [facility] Blood BLOOD SPECIMEN / Unknown 10/13/2023 1:03 PM CDT 10/13/2023 1:08 PM CDT Mayur Kinsey MD LAB - POINT OF CARE ORDERABLE S Final Result [facility] [address] [place] [address], [facility] [phone] from Last 3 Months or Most Recently Relevant to Health Maintenance Insurance [facility] Advance Directives * Full Code (Latest Code Status on File) Date Activated Date Inactivated Comments 10/13/2023 1:17 PM 10/14/2023 12:24 PM Care Teams Ekg Technician Relationship Specialty Start Date End Date Marquez Khan MD [address] [place] [address] PCP - General Internal Medicine 05/04/23
--- OUTSIDE RECORDS SUMMARY | 2024-10-06 08:42 | XMS_ITS | Clinical Summary ---
Author Organization [facility] Address [address] [place] [address] Care Team Providers Care Associate Professor Of Library Science Name Role Phone Unavailable Primary Care Provider Unavailabl e Social History Tobacco Use Types Packs/Day Years Used Date Smoking Tobacco: Never Assessed Comments Unknown Sex and Gender Information Value Date Recorded Sex Assigned at Not on file Legal Sex Female 8:57 PM REFRIGERATION SYSTEM INSTALLER Gender Identity Not on file Sexual Orientation [...]
--- OUTSIDE RECORDS SUMMARY | 2024-10-06 08:42 | XMS_ITS | Data Portability ---
Author Organization [place] [facility] Main Office Address [address] [place] [address] Care Team Providers Care Mill Labor Supervisor Name Role Phone MOR BLACKBURN Primary Care Provider [phone] MOR BLACKBURN Referring Provider Assessment Encounter Date [...] more than half the time spent in hwir-an-gexm care Not available 04/02/2023 13:52:30 Plan of Treatment Reminders Order Date Submit Date Provider Last Modified By Organization Details Last Modified Time Details Appointments None recorded. Lab vitamin D, 25-hydroxy, total, serum [address]), [address] [place] [address], [address], 3 17:37:26 phosphorus, serum or plasma [address], [address] [place] [address], [address], 3 17:37:26 PTH (parathyroi d hormone), intact + calcium, serum or plasma [address]), [address] [place], [address], 3 17:37:26 TSH + free T4, serum [address]), [address] [place], [address], 3 17:37:26 HbA1c (hemoglobin A1c), blood [address]), [address] [place], [address], 3 17:37:26 insulin, serum [address]), [address] [place], [address], 3 17:37:26 CMP, serum or plasma [address]), [address] [place], [address], 3 17:37:26 Referral None recorded. Procedures None recorded. Surgeries None recorded. Imaging XR, hip + pelvis, unilateral 2023 024 [email or web address] [facility] [place], [address], [place], [address], 4 15:05:21 SPECT-CT, parathyroid 20[address] [email or web address], [address] [place] [address], [address], 3 17:45:25 Medication Orders None recorded. Patient TargetsNo targets recorded. Patient InstructionsNo instructions recorded. Reason for Referral None Reported. Results Created Date Observation Date Name Description Value Unit Range Abnormal Flag Note LastModifiedBy Organization Detail LastModifiedTime 06/23/19 22 06/18/2021 DEXA, axial skele ton No observ ation record ed. [id number] 91934 [facility]) [address] [place] [address], [address], 05/13/2022 00:43:04 03/09/20 23 02/24/2023 MRI, hip, w/o contr ast No observ ation record ed. [email or web address] Not Available 02/12 11:45:32 03/09/20 23 11/30/2022 XR, hip, unila teral , 2 or 3 view No observ ation record ed. [email or web address] Not Available 02/12 11:45:32 04/01/19 24 XR, hip + pelvi s, unila teral No observ ation record ed. [facility] [place] [address], [place], [address], 04/02/2023 13:42:33 04/01/19 24 11/30/2022 XR, hip + pelvi s, unila teral No observ ation record ed. [email or web address] Not Available 2023 15:58:07 Result Notes None recorded. Problems Name Problem SNOMED Code Status Onset Date Resolution Date Notes Provider Name and Address Organization Details Recorded Time Hyperparat hyroidism 15204961 Active 2021 Not Available [facility] 3 00:39:25 Prediabete s 811464366 Active 2021 Not Available [facility] 3 00:39:25 Primary hyperparat hyroidism 18963880 Active 2021 Not Available [facility] 3 00:39:25 Vitamin D deficiency 06658548 Active 2021 Not Available [facility] 3 00:39:25 Pain of left knee joint 9174500824576 07 Active 2023 DREW Sepulveda null, [place] [facility] 4 10:43:38 Pain of left hip joint 3201614224315 00 Active 2023 DREW Sepulveda [facility] 4 11:15:37 Problem Notes None recorded. Procedures Surgical History Date Name Laterality Status Provider Name and Address Organization Details Recorded Time Hysterectomy completed Not Available [facility] 05/13/[facility]22 00:36:36 Imaging Results None recorded. Procedure Notes None recorded. Medical Equipment None Reported. Allergies Allergen ID Allergen Name Allergen Category Reaction Reaction Severity Criticality Documentation Date Start Date Code Code System Note Provider Name and Address Organization Details Recorded Time 74712 Substance with sulfonami de structure and antibacte rial mechanism of action (substanc e) medicatio n Not available Not available Not available 05/13/2022 08632 8003 SNOMED Not Available [facility] 3 00:42:41 Medications Name Sig Start Date Stop [...] Available Not Available Vitals Date Recorded Body height Body mass index (BMI) Body weight Provider Name and Address Organization Details Last Updated DateTime 04/01/2023 161.29 cm 43.9 kg/m2 301609.28 g DREW Sepulveda [facility] 04/01/2023 10:57:27 Date Recorded Body mass index (BMI) Body height Oxygen saturation Oxygen saturation in Arterial blood by Pulse oximetry Heart rate Body temperature Body weight Systolic And Diastolic Provider Name and Address Organization Details Last Updated DateTime 2 40.9 kg/m2 165.1 cm 97.01 % 97.01 % 97 /min 97.9 [degF] 665494. 72 g 118/70 mm[Hg] Not Available [facility] 3 00:37:15 Date Recorded Body height Body mass index (BMI) Body weight Body temperature Respiratory rate Heart rate Systolic And Diastolic Provider Name and Address Organization Details Last Updated DateTime 3 165.1 cm 41.8 kg/m2 471817. 12 g 97.6 [degF] 18 /min 107 /min 167/97 mm[Hg] DREW Daniels [place] [facility] 3 17:23:32 Date Recorded Body mass index (BMI) Body height Oxygen saturation Oxygen saturation in Arterial blood by Pulse oximetry Heart rate Body temperature Body weight Systolic And Diastolic Provider Name and Address Organization Details Last Updated DateTime 2 40.9 kg/m2 165.1 cm 97 % 97 % 88 /min 97.8 [degF] 566527. 72 g 115/90 mm[Hg] Not Available [facility] 3 00:37:15 Date Recorded Body mass index (BMI) Body height Oxygen saturation Oxygen saturation in Arterial blood by Pulse oximetry Heart rate Body temperature Body weight Systolic And Diastolic Provider Name and Address Organization Details Last Updated DateTime 2 41.3 kg/m2 165.1 cm 96 % 96 % 90 /min 98.1 [degF] 347071. 91 g 120/80 mm[Hg] Not Available [facility] 3 00:37:15 Social History Question Answer Notes LastModified by Organizat ion Details LastModified Time Tobacco Smoking Status Never Smoker Not Available [facility] 05/13/2022 00:35:49 In The 14 Days Before Symptom Onset, Have You Had Close Contact With A Laboratory-confirm ed COVID-19 While That Case Was Ill? No [id number] Information not available 05/13/2022 In The 14 Days Before Symptom Onset, Have You Had Close Contact With A Person Who Is Under Investigation For COVID-19 While That Person Was Ill? No [id number] Information not available 05/13/2022 Have You Recently Traveled Abroad? No [id number] Information not available 05/13/2022 Sex: Female Functional Status Question Answer Note LastModified by Organizat ion Details LastModified Time Do you use any illicit or recreational drugs? No [id number] Information not available 05/13/2022 What is your level of alcohol consumption? None [id number] Information not available 05/13/2022 Mental Status None recorded. Family History Relationship Description Onset Age of this Age Resolved Age Notes LastModified by Organization Details LastModified Time Father Malignant neoplasm of lung [id number] Not available 05/13/2022 00:36:37 Paternal Grandmother Heart disease [id number] Not available 05/13/2022 00:36:38 Medical History Condition [...] HAVE YOU BEEN HOSPITALIZED OR SEEN IN [facility] IN THE PAST YEAR ? N [...] SNOMED-CT Code Diagnosis ICD10 Code Diagnosis Note [id number] [facility] [place] [address] [place] [address] 06/15/2021 00:00:00 06/15/2021 12:29:25 [id number] [facility] [place] [address] [place] [address] 10/16/2021 00:00:00 10/16/2021 10:35:13 [id number] [facility] [place] [address] [place] [address] 02/15/2022 00:00:00 02/15/2022 18:11:43 [id number] Julieta José MD [facility] [place] [address] [place] [address] 07/22/2022 17:09:47 07/22/2022 17:45:24 Primary hyperparathyroidism 15135923 E21.0 Patient is not taking any additional [...] there is localizati on of adenoma. Prediabetes 964040918 R7 3.03 continue metformin daily. Discussed carb counting and how to read food labels. Recommende d patient to utilize the diabetesfo [employer] from the ADA website to help with food preparatio n as this presents ideal carb content per meal so this will make carb counting much easier for patient. Recommende d she incorporat e natural insulin oncology consultant s such as pears, apples, cinnamon, suyapa [...] n in the electronic health record, independen danny interpreti ng results and communicat ing results to the patient. RTC in 6 months. Patient was provided a handwritte n lab order which contains our fax number. If she chooses to go outside of the [facility] system to obtain labwork she was [...] in her case. She voiced understand ing. [id number] Mynor Anderson MD [facility] [place] [address] [place] [address] 04/01/2023 10:13:14 04/04/2023 15:05:21 Pain of left hip joint 1073357317 55668 M25.552 Health Concerns Section Related Observation LastModified by Organization Detai ls LastModified Time None Recorded Concern Status LastModified by Organization Details LastModified Time None Recorded Advance Directives Directive None Recorded Payers Insurance Date Sequence Insurance Name Policy Number Policy Logan Covered Member ID Logan Member ID Guarantor Name 04/07/2023 1 [facility] [id number] Adry Fernandez [id number] Adry Fernandez Notes Date Note Type Note Provider Name and Address Organization Details Recorded Time 3 text/html ROS as noted in the HPI 62 yo female comes in for follow [...] 134 mg/dLa1c 5.9% Julieta José MD [address] [facility], [facility] [address], [place], [address], [place] 07/22/2022 18:59:37 4 text/html patient is a [...] parathyroidectomy with Dr. José. Mynor Anderson MD [address] [place] [address], [place] [address], [place], [address], [facility] 04/02/2023 13:52:50 OBGyn Episode No OBEpisode recorded.
--- NOTE | 2024-10-06 08:46 | ED_ITS ---
HPI - Allergic Reaction General Chief complaint: Allergic Reaction Stated complaint: allergic reaction Time Seen by Provider: 10/06/24 08:46 Source: patient Mode of arrival: ambulatory Limitations: no limitations History of Present Illness HPI narrative: 64-year-old female with a history of prediabetes, dyslipidemia, hypertension, hepatic steatosis, hyperparathyroid status post removal of 1 parathyroid gland presents to the ED with a 3 day history of -- urticarial rash in bilateral upper extremities -- lip swelling which started this morning. No throat swelling. No wheezing or shortness of breath. No lightheadedness. The patient completed a course of nitrofurantoin 3 days ago. Yesterday she ate ice cream. No other new drugs or new foods complaint: allergic reaction Onset (ago): day(s) ( 3 days) Exposure: food ( ate ice cream yesterday) and medication ( nitrofurantoin) Symptoms: rash and lip swelling Severity: mild Treatment prior to arrival: other ( Claritin) Previous Allergic Reaction History: other ( allergic reaction to Bactrim.) Related Data Home Medications ?Medication ?Instructions ?Recorded ?Confirmed ?Last Taken ?Type cholecalciferol (vitamin D3) 125 125 mcg PO .every other day 07/26/24 07/26/24 Unknown History mcg (5,000 unit) capsule Allergies Allergy/AdvReac Type Severity Reaction Status Date / Time Sulfa (Sulfonamide Allergy Mild Hives Verified 10/06/24 08:58 Antibiotics) Review of Systems Review of Systems: All systems reviewed & are unremarkable except as noted in HPI and below PMFSH Past Medical History Medical History Loss of height Surgical History Surgical History History of parathyroidectomy 10/2023 Dr. Kinsey H/O: hysterectomy Social History Social History Smoking status: Never smoker Alcohol intake: current Alcohol use details: occasionally Substance use: never Do You Feel Safe in your Home?: Yes Lack of Transportation: No Lack of Food: Never True Current Housing: I Have Housing Concerned About Future Housing: No Difficulty Paying Gas/Electric Bills: No Difficulty Paying for Meds: No Currently Unemployed: No Education: Bachelor's Degree Difficulty w/ Childcare or Family Care: No Exam Const: General: healthy appearing and no acute distress Nutritional Appearance: well nourished Orientation/consciousness: patient oriented x3 Limitations: no limitations HENMT: Head: normal to inspection Ears: external ears normal Face/Nose/Sinus: Normal external nose present Face and sinus: normal facial exam ( Lip swelling) Mouth: Yes Normal oral and palatal mucosa present Throat: posterior oropharynx normal Eyes: Conjunctivae: conjunctivae normal Pupils: Equal, round and reactive pupils present EOM: EOMs intact bilaterally Direct Ophthalmoscopy: no photophobia Neck: Neck: normal visual inspection, no lymphadenopathy and no meningeal signs Chest: Chest palpation & inspection: normal inspection of the chest Resp: Effort & Inspection: normal respiratory effort Auscultation: clear to auscultation bilaterally Cardio: Rate: regular rate Rhythm: regular rhythm GI: GI Palp: Yes Soft to palpation Auscultation: normal bowel sounds Other: No tenderness/rigidity /rebound : General: Yes no CVA tenderness Back/Spine/Pelvis: Back: no CVA tenderness Skin: General skin exam: normal color Other: urticarial rash both forearms lip swelling Neuro: General: patient oriented x3, moves all extremities, no meningeal signs, no focal motor deficits and CN's II-XI intact bilaterally Cranial nerves: Yes Nystagmus not present Speech: normal speech Gait exam (Neuro): Normal gait present Extrem: General: normal to inspection and no clubbing, cyanosis or edema Psych: Mental Status: mental status grossly normal Affect: normal affect Attitude: cooperative Course Course Emergency Course: allergic reaction with urticarial rash and angioedema, possibly secondary to PID DM, nitrofurantoin-- gave Solu-Medrol 125 mg IM. 9:30 a.m.-- with swelling appears to have decreased. No tongue swelling no shortness of breath. explain manifestation of anaphylaxis including tongue swelling, throat swelling, wheezing, shortness of breath and lightheadedness. Advised to call 911 for these reactions. Vital Signs Vital signs: Vital Signs Temperature 36.7 C 10/06/24 08:40 Pulse Rate 102 H 10/06/24 08:40 Respiratory Rate 16 10/06/24 08:40 Blood Pressure 130/77 10/06/24 08:40 Pulse Oximetry 95 10/06/24 08:40 Oxygen Delivery Room Air 10/06/24 08:40 Temperature 36.7 C 10/06/24 08:40 Pulse Rate 102 H 10/06/24 08:40 Respiratory Rate 16 10/06/24 08:40 Blood Pressure 130/77 10/06/24 08:40 Pulse Oximetry 95 10/06/24 08:40 Oxygen Delivery Room Air 10/06/24 08:40 MDM - Allergic Reaction MDM Narrative Medical decision making narrative: allergic reaction Discharge Plan Discharge Clinical Impression: Allergic reaction, Angioedema Patient Disposition: Home Condition: Stable Instructions: Antibiotic Form, General Allergic Reaction (ED) Patient Language: Armenian Prescriptions: New prednisone 20 mg tablet 20 mg PO BID Qty: 10 0RF No Action cholecalciferol (vitamin D3) 125 mcg (5,000 unit) capsule 125 mcg PO .every other day hydrochlorothiazide 25 mg tablet 25 mg PO DAILY Qty: 90 2RF metformin 500 mg tablet 1,000 mg PO BID Qty: 360 1RF rosuvastatin 20 mg tablet See Rx Instructions .ROUTE .COMPLEX Qty: 90 1RF Dose Instruction: TAKE ONE TABLET BY MOUTH DAILY Rx Instructions: TAKE ONE TABLET BY MOUTH DAILY Follow-up/Referrals: Marquez Khan MD [Primary Care Provider] - Time of Disposition: 09:29
--- OUTSIDE RECORDS SUMMARY | 2024-10-06 09:16 | XMS_ITS | Clinical Summary ---
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
--- OUTSIDE RECORDS SUMMARY | 2024-10-06 09:16 | XMS_ITS | Clinical Summary ---
Author Organization [facility] Address [address] [place] [address] Care Team Providers Care Lay Up Operator Name Role Phone Marquez Khan MD Primary Care Provider [phone] Source Comments [facility],non-owned Affiliates and Associated Physician Practices is amultiple site organization consisting of ambulatory clinics and hospital sitesin [place], [place], [place] and [place]. This disclosure is being madepursuant to the Care Everywhere program and may not contain all information available regarding this patient. Last updated 17.[facility] Allergies Active Allergy Reactions Criticality Noted Date [...] Only [facility] [address] [facility], [place] [address] Shree Fofana MD Thyroid nodule; Hypercalcemia; Primary [...] care, and heating? Not very hard 10/13/2023 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 Gender Identity Not on file Sexual Orientation [...] - 115 mg/dL 10/13/2023 1:08 PM CDT [facility] Specimen Type Cap Fingerstick 2023 1:08 PM CDT [facility] Blood BLOOD SPECIMEN / Unknown 10/13/2023 1:03 PM CDT 10/13/2023 1:08 PM CDT Mayur Kinsey MD LAB - POINT OF CARE ORDERABLE S Final Result [facility] [address] [place] [address], [facility] [phone] from Last 3 Months or Most Recently Relevant to Health Maintenance Insurance [facility] Advance Directives * Full Code (Latest Code Status on File) Date Activated Date Inactivated Comments 10/13/2023 1:17 PM 10/14/2023 12:24 PM Care Teams Lay Up Operator Relationship Specialty Start Date End Date Marquez hKan MD [address] [place] [address] PCP - General Internal Medicine 05/04/23
--- OUTSIDE RECORDS SUMMARY | 2024-10-06 09:16 | XMS_ITS | Continuity of Care Document ---
Author Organization [facility] Address [address] [place] [address] [place] [address] Phone Care Team Providers Care Nurse Infection Control Name Role Phone Merlene Rodgers Unavailable Unavailable Procedures Procedure Date Office/outpatient Visit, [facility] Fundus Photography W/ Report Optic Nerve Topography Optic Nerve Topography Visual Field Examination(s) Office/outpatient Visit, [facility] Corneal Pachymetry Advance Directives Directive Yes / No Effective Date File Name No Information Encounters Encounter Description Practice Location Reason(s) For Visit Diagnoses Date Provider Providers Copied on Encounter Office/outpat ient Visit, [facility], [address] [place], [place] [address], [place], [place], [id number], tel:[phone] [facility] No Information 8 Ana Maria Ray [address] [facility] , [facility] [address], [place], [address], . tel:[phone] Referring Provider: Peter Beckett [address], [place], [address]. tel:[phone] [facility], [address] [place] [address] [address], [place], [place], [id number], tel:[phone] [facility] No Information 8-200 8 Ana Maria Ray [address], [place], [address], [place]. tel:[phone] Referring Provider: Peter Beckett [address], [place], [address]. tel:[phone] [facility], [address] [place] [address] [address], [place], [place], [id number], tel:[phone] [facility] No Information 8 Ana Maria Blunt. [address] [facility] , [address], [place], [address], [place]. tel:[phone] Referring Provider: Peter Beckett [facility] [address], [place], [address]. tel:[phone] Office/outpat ient Visit, [facility], [address] [facility] [place] [address], [place], [place], [address], tel:[phone] [facility] No Information 8 Ana Maria Blunt. Peter [facility] , [address], [place], [address], [place]. tel:[phone] Referring Provider: Peter Beckett [facility] [address], [place], [address]. tel:[phone] Family History Family Member Type Diagnosis Age [...]
[2024-10-06 09:32] VITALS: BP 120/74; PULSE 76; RESP 20; O2SAT 98
== END 2024-10-06 09:32 | disposition home or self-care (01) ==
PROVIDERS: Emergency Provider Internal Medicine Critical Care Medicine; PCP Internal Medicine
DX: T78.3XXA Angioneurotic edema, initial encounter (principal); I10 Essential (primary) hypertension
CPT/HCPCS: 96372; 99283; J2919

== ENCOUNTER 2024-11-13 07:54 | Outpatient (CLI) | payer OTHER, SELFPAY ==
--- OUTSIDE RECORDS SUMMARY | 2007-11-28 07:30 | XMS_ITS | Continuity of Care Document ---
Author Organization [facility] Address [address] [place] [address] [place] [address] Phone Care Team Providers Care Auxiliary Operator Name Role Phone Merlene Rodgers Unavailable Unavailable Procedures Procedure Date Office/outpatient Visit, [facility] Fundus Photography W/ Report Optic Nerve Topography Optic Nerve Topography Visual Field Examination(s) Office/outpatient Visit, [facility] Corneal Pachymetry Advance Directives Directive Yes / No Effective Date File Name No Information Encounters Encounter Description Practice Location Reason(s) For Visit Diagnoses Date Provider Providers Copied on Encounter Office/outpat ient Visit, Est [facility], [address] [place], [place] [address], [place], [place], [id number], tel:[phone] [facility] No Information 8 Ana Maria Ray [address] [facility] , [facility] [address], [place], [address], . tel:[phone] Referring Provider: Peter Beckett [address], [place], [address]. tel:[phone] [facility], [address] [place] [address] [address], [place], [place], [id number], tel:[phone] [facility] No Information 8-200 8 Ana Maria Ray [address], [place], [address], [place]. tel:[phone] Referring Provider: Peter [address], [place], [address]. tel:[phone] [facility], [address] [place] [address] [address], [place], [place], [id number], tel:[phone] [facility] No Information 8 Ana Maria Blunt. [address] [facility] , [address], [place], [address], [place]. tel:[phone] Referring Provider: Peter Beckett [facility] [address], [place], [address]. tel:[phone] Office/outpat ient Visit, [facility], [address] [facility] [address], [place], [place], [address], tel:[phone] [facility] No Information 8 Ana Maria Blunt. Peter [facility] , [address], [place], [address], [place]. tel:[phone] Referring Provider: Peter Beckett [facility] [address], [place], [address]. tel:[phone] Family History Family Member Type Diagnosis Age At Onset No Information Payers Payer name Insurance type Covered democrat ID Authoriza tion(s) No Information Social History [...]
--- NOTE | ~2024-11-13 | MM_ITS ---
EXAMINATION: MM screening [facility] BI w laxmi HISTORY: Screening TECHNIQUE: Craniocaudal and mediolateral oblique 3-D tomosynthesis images were obtained and synthetic 2-D images were generated. CAD analysis was submitted and interpreted. COMPARISON: Mammograms from 11/11/2023 and 11/08/2022 BREAST PARENCHYMAL COMPOSITION: Not Dense: The breasts are almost entirely fatty. FINDINGS: There is no evidence of suspicious mass, calcification, or architectural distortion to suggest malignancy. There has been no suspicious interval change. IMPRESSION: 1. No mammographic evidence of malignancy. Recommend routine screening mammography in one year. BI-RADS Category 2: Benign finding(s) Reviewed, dictated and finalized at location Q. IMPRESSION: 1. No mammographic evidence of malignancy. Recommend routine screening mammogra phy in one year. BI-RADS Category 2: Benign finding(s)
--- OUTSIDE RECORDS SUMMARY | 2024-11-13 07:57 | XMS_ITS | Clinical Summary ---
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
--- OUTSIDE RECORDS SUMMARY | 2024-11-13 07:57 | XMS_ITS | Clinical Summary ---
Author Organization [facility] [employer] Address [address] [place] [address] Care Team Providers Care Supervisor Laboratory Animal Facility Name Role Phone Marquez Khan MD Primary Care Provider [phone] Source Comments [facility] [employer],non-owned Affiliates and Associated Physician Practices is amultiple site organization consisting of ambulatory clinics and hospital sitesin [place], [place], [place] and [place]. This disclosure is being madepursuant to the Care Everywhere program and may not contain all information available regarding this patient. Last updated 17.[facility] [employer] Allergies Active Allergy Reactions Criticality Noted Date [...] of diabetes mellitus 07/08/2023 Overview (07/08/2023): prediabetic Family History Medical History Relation Name Comments [...] care, and heating? Not very hard 10/13/2023 [facility] [place] of Occupat ional Health - Occupational Stress [...] place to sleep or slept in a senior care (including now)? 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 Gender Identity Not on file Sexual Orientation [...] 60-74 years 1-dose series) 2020 COVID-19 VACCINE ( season) 2023 DEPRESSION SCREENING 03/14/2024 INFLUENZA VACCINE [...] - 115 mg/dL 10/13/2023 1:08 PM CDT [facility] Specimen Type Cap Fingerstick 2023 1:08 PM CDT [facility] Blood BLOOD SPECIMEN / Unknown 10/13/2023 1:03 PM CDT 10/13/2023 1:08 PM CDT us Mayur Kinsey MD LAB - POINT OF CARE ORDERABLE S Final Result [facility] [address] [place] [address], [place] [phone] from Last 3 Months or Most Recently Relevant to Health Maintenance Insurance [facility] Advance Directives * Full Code (Latest Code Status on File) Date Activated Date Inactivated Comments 10/13/2023 1:17 PM 10/14/2023 12:24 PM Care Teams Supervisor Laboratory Animal Facility Relationship Specialty Start Date End Date Marquez Khan MD [address] [place] [address] PCP - General Internal Medicine 05/04/23
== END 2024-11-13 07:55 | disposition home or self-care (01) ==
LOC: CHSIMG 07:54
PROVIDERS: PCP Internal Medicine; Visit Provider Internal Medicine
DX: Z12.31 Encounter for screening mammogram for malignant neoplasm of breast (principal)
CPT/HCPCS: 77063; 77067

== ENCOUNTER 2024-12-24 08:03 | Outpatient (CLI) | payer OTHER, SELFPAY ==
--- OUTSIDE RECORDS SUMMARY | 2007-11-28 07:30 | XMS_ITS | Continuity of Care Document ---
Author Organization [facility] Address [address] [place] [address] [place] [address] Phone Care Team Providers Care Log Tumbler Name Role Phone Merlene Rodgers Unavailable Unavailable Procedures Procedure Date Office/outpatient Visit, [facility] Fundus Photography W/ Report Optic Nerve Topography Optic Nerve Topography Visual Field Examination(s) Office/outpatient Visit, [facility] Corneal Pachymetry Advance Directives Directive Yes / No Effective Date File Name No Information Encounters Encounter Description Practice Location Reason(s) For Visit Diagnoses Date Provider Providers Copied on Encounter Office/outpat ient Visit, Est [facility], [address] [place], [place] [address] [address], [place], [place], [id number], tel:[phone] [facility] No Information 8 Ana Maria Ray [address] [facility] , [facility] [address], [place], [address], . tel:[phone] Referring Provider: Peter Beckett [address], [place], [address]. tel:[phone] [facility], [address] [place] [address] [address], [place], [place], [id number], tel:[phone] [facility] No Information 8-200 8 Ana Maria Ray [address], [place], [address], [place]. tel:[phone] Referring Provider: Peter [address], [place], [address]. tel:[phone] [facility], [address] [place] [address] [address], [place], [place], [id number], tel:[phone] [facility] No Information 8 Ana Maria Blunt. [address] [facility] , [address], [place], [address], [place]. tel:[phone] Referring Provider: Peter Beckett [facility] [address], [place], [address]. tel:[phone] Office/outpat ient Visit, [facility], [address] [facility] [address], [place], [place], [id number], tel:[phone] [facility] No Information 8 Ana Maria Blunt. Peter [facility] , [address], [place], [address], [place]. tel:[phone] Referring Provider: Peter Beckett [facility] [address], [place], [address]. tel:[phone] Family History Family Member Type Diagnosis Age At Onset No Information Payers Payer name Insurance type Covered constitution party ID Authoriza tion(s) No Information Social History Type Description Quantity Date Captured Comments Sex Female Smoking Status No Information Chief Complaint And Reason For Visit No Information Reason For Referral Reason For Referral No Information History Of Present Illness Encounter Date Complaint History Of Prese nt Illness No Information Functional Status Date Functional Assessmen t No Information Instructions Date Instruction Additional Infor mation No Information Assessments Type Assessment Date No Information Patient Care Teams Name Effective Dates (start - stop) Status Members No Information
--- OUTSIDE RECORDS SUMMARY | 2024-12-24 08:14 | XMS_ITS | Clinical Summary ---
Author Organization [facility] [employer] Address [address] [place] [address] Care Team Providers Care Centralized Traffic Control Operator Name Role Phone Marquez Khan MD Primary Care Provider [phone] Source Comments [facility] [employer],non-owned Affiliates and Associated Physician Practices is amultiple site organization consisting of ambulatory clinics and hospital sitesin [place], [place], [place] and [place]. This disclosure is being madepursuant to the Care Everywhere program and may not contain all information available regarding this patient. Last updated 17.[facility] Allergies Active Allergy Reactions Criticality Noted Date [...] care, and heating? Not very hard 10/13/2023 [facility] [place] of Occupat ional Health - Occupational Stress [...] place to sleep or slept in a group home (including now)? 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 Gender Identity Female 12/06/2024 10:46 AM CDT Sexual Orientation Not on file Last Filed [...] 11/11/2023 10:18 AM CDT Plan of Treatment Upcoming Encounters Date Type Department Care Team (Late st Contact Info) Description 01/08/2025 10:00 AM CDT Office Visit [facility] - Endocrinology [address] [place] [address], [place] [address] Shree Fofana MD [address] [place] [address] [place] [address] Health Maintenance Due Date Last Done Comments [...] - Risk 60-74 years 1-dose series) 2020 DEPRESSION SCREENING 03/14/2024 COVID-19 VACCINE ( - season) 2024 INFLUENZA VACCINE (#1) 2024 SCREENING FOR DIABETES 10/12/2026 4, 10/13/2023, 05/13/2023, Additional history exists HEPATITIS B [...] - 115 mg/dL 10/13/2023 1:08 PM CDT [facility] Specimen Type Cap Fingerstick 2023 1:08 PM CDT [facility] Blood BLOOD SPECIMEN / Unknown 10/13/2023 1:03 PM CDT 10/13/2023 1:08 PM CDT Mayur Kinsey MD LAB - POINT OF CARE ORDERABLE S Final Result Performing Organization Address City/State/[facility] Co de Phone Number [facility] [address] [place] [id number], [facility] [phone] from Last 3 Months or Most Recently Relevant to Health Maintenance Insurance [facility] [place] [address] Advance Directives * Full Code (Latest Code Status on File) Date Activated Date Inactivated Comments 10/13/2023 1:17 PM 10/14/2023 12:24 PM Care Teams Centralized Traffic Control Operator Relationship Specialty Start Date End Date Marquez Khan MD [address] [place] [address] PCP - General Internal Medicine 05/04/23
--- OUTSIDE RECORDS SUMMARY | 2024-12-24 08:14 | XMS_ITS | Clinical Summary ---
Author Organization [facility] Address [address] [place] [address] Care Team Providers Care Film Developer Name Role Phone Marquez Khan MD Primary Care Provider [phone] Allergies Active Allergy Reactions Criticality Noted Date Comments Pantoprazole Diarrhea Low 07/07/2023 Sulfa (Sulfonamide Antibiotics) Hives,Itching,Rash Medium 05/04/2023 Medications amLODIPine (NORVASC) 10 mg tablet 08/13/2024 Active cholecalciferol (VITAMIN D-3) 5,000 unit capsule Take 125 mcg by mouth 07/26/2024 Active hydroCHLOROthiaz luzma (HYDRODIURIL) 25 mg tablet 11/21/2024 Active hydroCHLOROthiaz luzma 12.5 mg tablet 03/15/2023 Active metFORMIN (GLUCOPHAGE) 500 mg tablet 04/11/2023 Active hydroCHLOROthiaz luzma (HYDRODIURIL) 25 mg tablet Take 1 tablet (25 mg total) by mouth 07/26/2024 Active phentermine (ADIPEX-P) 37.5 mg tablet 2 11/21/2024 Active predniSONE (DELTASONE) 20 mg tablet 10/06/2024 Active rosuvastatin (CRESTOR) 20 mg tablet 04/20/2023 Active oxyCODONE (ROXICODONE) 5 mg immediate release tablet Take 1 tablet (5 mg total) by mouth every 4 (four) hours as needed 10/14/2023 Active nitrofurantoin monohydrate (MACROBID) 100 mg capsule 09/24/2024 Active Active Problems Problem Noted Date Diagnosed Date Allergic reaction 11/26/2024 Angioedema 11/26/2024 Diverticulosis 11/26/2024 Dyslipidemia 11/26/2024 H/O: hysterectomy 11/26/2024 Hypercalciuria 11/26/2024 Hypertension 11/26/2024 Hypokalemia 11/26/2024 Loss of height 11/26/2024 Low vitamin D level 11/26/2024 Metabolic syndrome 11/26/2024 Obesity 11/26/2024 Snoring 11/26/2024 BMI 40.0-44.9, adult 11/26/2024 Elevated cholesterol 07/07/2023 Hypercalcemia 07/07/2023 Osteoarthritis 07/07/2023 Osteopenia 07/07/2023 Thyroid nodule 07/07/2023 Hyperparathyroidism 05/04/2023 Vitamin D deficiency 10/16/2021 Primary hyperparathyroidism 06/15/2021 Prediabetes 06/15/2021 Encounters Date Type Department Care Team Description 11/28/2024 2:09 AM CDT - 11/28/2024 11:59 PM CDT Hospital Encounter [facility] [address] [place] [address] Discharge Disposition: Discharge to home or self care 11/28/2024 2:09 AM CDT - 11/28/2024 11:59 PM CDT Hospital Encounter [facility] [address] [place] [address] Discharge Disposition: Discharge to home or self care 11/28/2024 2:09 AM CDT - 11/28/2024 11:59 PM CDT Hospital Encounter [facility] [address] [place] [address] Discharge Disposition: Discharge to home or self care 11/28/2024 2:09 AM CDT - 11/28/2024 11:59 PM CDT Hospital Encounter [facility] [address] [place] [address] Discharge Disposition: Discharge to home or self care 11/26/2024 10:30 AM CDT Office Visit [facility] Medicine Orthopaedic Surgery [address] [place] [address] Philip Higgins MD Left hip pain (Primary Dx) 11/26/2024 9:50 AM CDT - 11/26/2024 11:59 PM CDT Hospital Encounter [facility] [address] [place] [phone] Left hip pain Discharge Disposition: Discharge to home or self care from Last 3 Months Immunizations Immunization Administration Dates Next Due Influenza, Quadrivalent, Spl it, Preservative Free, Intramuscular 12/22/2022 Influenza, Trivalent, Preservative Free, Intramu scular 12/22/2023 Social History Tobacco Use Types Packs/Day Years Used Date Smoking Tobacco: Never Smokeless Tobacco: Never Tobacco Cessation:Counseling Given: Not Answered Comments Unknown Sex and Gender Information Value Date Recorded Sex Assigned at Not on file 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 Gender Identity Not on file Sexual Orientation Not on file Obstetrics History Last Filed Vital Signs Vital Sign Reading Time Taken Comments Blood Pressure - - Pulse - - Temperature - - Respiratory Rate - - Oxygen Saturation - - Inhaled Oxygen Concentration - - Weight 94.3 kg (208 lb) 11/26/2024 11:32 AM CDT Height 163.8 cm (5' 4.5) 11/26/2024 11:32 AM CD T Body Mass Index 35.15 11/26/2024 11:32 AM CDT Plan of Treatment Upcoming Encounters Date Type Department Care Team (Late st Contact Info) Description 04/02/2025 Hospital Encounter [facility] Operating Room [address] [place] [address] Philip Higgins MD [address] [facility] [address] [place] [address] Scheduled Procedures Name Priority Associated Diagnoses Date/Ti me ARTHROPLASTY TOTAL HIP - ANTERIOR APPROACH - MICROPORT Primary osteoarthritis of left hip Health Maintenance Due Date Last Done Comments Breast Cancer Screening-Mammogram 1960 Cervical Cancer Screening 1960 Colon Cancer Screening-Colonoscopy 1960 Depression Screening 1960 Hepatitis C Screening 1960 DTaP/Tdap/Td Vaccine (1 - Tdap) 05/16/1971 Hepatitis B Screening 1978 Regular Well Visit/Exam 18-64 1978 Zoster Vaccine (1 of 2) 2010 Covid-19 Vaccine ( season) 2024 11/26/2021, 01/16/2021, 04/07/2020, Additional history exists Influenza Vaccine (#1) 2024 12/22/2023, 2022 Pneumococcal vaccine <65 Aged Out No longer eligible based on patient's age to complete this topic Procedures Procedure Name Priority Date/Time Associated Diagnosis Comments XR TRANSFER OF OUTSIDE FILMS Routine 11/28/2024 2:09 AM CDT XR TRANSFER OF OUTSIDE FILMS Routine 11/28/2024 2:09 AM CDT NEURO MR OUTSIDE REFERENCE Routine 11/28/2024 2:09 AM CDT MSK MR OUTSIDE REFERENCE Routine 11/28/2024 2:09 AM CDT XR HIP LEFT W PELVIS 2 OR 3 VIEWS Schedule Routine, Read Routine (OP Routine) 11/26/2024 10:00 AM CDT Left hip pain from Last 3 Months Results * XR Outside Reference (11/28/2024 2:09 AM CDT) Impressions [email or web address] - 11/28/2024 2:09 AM CDT These images are for Reference purposes only and have not been reviewed by [facility]. There will be no report generated by a [facility] Radiologist. Narrative [email or web address] - 11/28/2024 2:09 AM CDT EXAMINATION: Images For Reference Purposes Only us Philip Higgins MD IMG XR PROCEDURES Final Resul t [email or web address] * XR Outside Reference (11/28/2024 2:09 AM CDT) Impressions [facility] - 11/28/2024 2:09 AM CDT These images are for Reference purposes only and have not been reviewed by [facility]. There will be no report generated by a [facility] Radiologist. Narrative [facility] - 11/28/2024 2:09 AM CDT EXAMINATION: Images For Reference Purposes Only Philip Higgins MD IMG XR PROCEDURES Final Resul t Performing Organization Address [facility] de Phone Number [email or web address] * Neuro MR Outside Reference (11/28/2024 2:09 AM CDT) Impressions [facility] - 11/28/2024 2:09 AM CDT These images are for Reference purposes only and have not been reviewed by [facility]. There will be no report generated by a [facility] Radiologist. Narrative [facility] - 11/28/2024 2:09 AM CDT EXAMINATION: Images For Reference Purposes Only Philip Higgins MD IMG MRI PROCEDURES Final Resu lt Performing Organization Address [facility] de Phone Number [email or web address] * MSK MR Outside Reference (11/28/2024 2:09 AM CDT) Impressions [facility] - 11/28/2024 2:09 AM CDT These images are for Reference purposes only and have not been reviewed by [facility]. There will be no report generated by a [facility] Radiologist. Narrative [facility] - 11/28/2024 2:09 AM CDT EXAMINATION: Images For Reference Purposes Only Philip Higgins MD IMG MRI PROCEDURES Final Resu lt Performing Organization Address [facility] de Phone Number [email or web address] * XR Hip Left 2 or 3 Views W Pelvis (11/26/2024 10:00 AM CDT) Anatomical Region Laterality Modality Lower Extremities, Hip, Pelvis Left C omputed Radiography 11/26/2024 10:2 6 AM CDT Impressions 11/26/2024 10:26 AM CDT 1. Severe left hip osteoarthritis. Electronically signed by: Solitario Gabriel MD Narrative 11/26/2024 10:26 AM CDT EXAMINATION: XR HIP LEFT 2 OR 3 VIEWS W PELVIS HISTORY: Left hip pain FINDINGS: No examinations are available for comparison. No acute fracture or dislocation. There is severe left hip osteoarthritis with [id number] contact. Mild right hip osteoarthritis. Procedure Note Solitario Gabriel MD - 11/26/2024 EXAMINATION: XR HIP LEFT 2 OR 3 VIEWS W PELVIS HISTORY: Left hip pain FINDINGS: No examinations are available for comparison. No acute fracture or dislocation. There is severe left hip osteoarthritis with ainv-ic-lnjy contact. Mild right hip osteoarthritis. IMPRESSION: 1. Severe left hip osteoarthritis. Electronically signed by: Solitario Gabriel MD Philip Higgins MD IMG XR PROCEDURES Final Resul t from Last 3 Months Insurance [facility] Care Teams Film Developer Relationship Specialty Start Date End Date Marquez Khan MD [address] [place] [address] PCP - General Internal Medicine 05/30/24
--- OUTSIDE RECORDS SUMMARY | 2024-12-24 08:14 | XMS_ITS | Clinical Summary ---
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
[2024-12-24 09:37] LABS: Thyroid Stimulating Hormone 1.170 uIU/mL (0.465-4.680)
== END 2024-12-24 08:04 | disposition home or self-care (01) ==
LOC: CHSLAB 08:06
PROVIDERS: PCP Internal Medicine
DX: E04.1 Nontoxic single thyroid nodule (principal)
CPT/HCPCS: 36415; 84443

== ENCOUNTER 2025-02-04 07:36 | Outpatient (CLI) | payer OTHER, SELFPAY ==
--- OUTSIDE RECORDS SUMMARY | 2025-02-04 07:41 | XMS_ITS | Clinical Summary ---
Author Organization [facility] Address [address] [place] [address] Care Team Providers Care Food Broker Name Role Phone Marquez Khan MD Primary Care Provider [phone] Allergies Active Allergy Reactions Criticality Noted Date [...] 11/28/2024 11:59 PM CDT Hospital Encounter [facility] [address] [place] [address] Discharge Disposition: Discharge to home or self care 11/28/2024 2:09 AM CDT - 11/28/2024 11:59 PM CDT Hospital Encounter [facility] [address] [place] [address] Discharge Disposition: Discharge to home or self care 11/28/2024 2:09 AM CDT - 11/28/2024 11:59 PM CDT Hospital Encounter [facility] [address] [place] [address] Discharge Disposition: Discharge to home or self care 11/28/2024 2:09 AM CDT - 11/28/2024 11:59 PM CDT Hospital Encounter [facility] [address] [place] [address] Discharge Disposition: Discharge to home or self care 11/26/2024 10:30 AM CDT Office Visit [facility] Medicine Orthopaedic Surgery [address] [facility] [address] [place] [address] Philip Higgins MD Left hip pain (Primary Dx) 11/26/2024 9:50 AM CDT - 11/26/2024 11:59 PM CDT Hospital Encounter [facility] [address] [facility] [address] [place] [phone] Left hip pain Discharge Disposition: Discharge to [...] on file 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 Gender Identity Not on file Sexual Orientation [...] Upcoming Encounters Date Type Department Care Team (Latest Contact Info) Description 04/02/2025 7:15 AM SPORTING GOODS SALES MANAGER Hospital Encounter [facility] Operating Room [address] [place] [address] Philip Higgins MD [address] [address] 04/02/2025 7:15 AM SPORTING GOODS SALES MANAGER - 04/02/2025 9:30 AM SPORTING GOODS SALES MANAGER Surgery [facility] Operating Room [address] [place] [address] Philip Higgins MD [address] [address] ARTHROPLASTY TOTAL HIP - ANTERIOR APPROACH - Scheduled Procedures Name Priority Associated Diagnoses Date/Ti me ARTHROPLASTY TOTAL HIP - ANTERIOR APPROACH - MICROPORT Primary osteoarthritis of left hip 04/02/2025 7:15 AM SPORTING GOODS SALES MANAGER Health Maintenance Due Date Last Done Comments Breast Cancer Screening-Mammogram 1960 Cervical Cancer Screening 1960 Colon Cancer Screening-Colonoscopy 1960 Depression Screening 1960 Hepatitis C Screening 1960 DTaP/Tdap/Td Vaccine (1 - Tdap) 05/16/1971 Hepatitis B Screening 1978 Regular Well Visit/Exam 18-64 1978 Zoster Vaccine (1 of 2) 2010 Covid-19 Vaccine (5 - season) 2024 11/26/2021, 01/16/2021, 04/07/2020, Additional history exists Influenza Vaccine (#1) 2024 12/22/2023, 2022 Pneumococcal vaccine <65 Aged Out No longer eligible based on patient's age to complete this topic Goals Goal Patient Goal Type Associated Problems Recent Progress Patient-Stated? Author Autogenerat ed Goal Care Plan Autogenerated Problem No Sadie Oliveira, cafe associate Procedure Name Priority Date/Time Associated Diagnosis Comments [...] only and have not been reviewed by [facility]. There will be no report generated by a [facility] Radiologist. Narrative [facility] - 11/28/2024 2:09 AM CDT EXAMINATION: Images For Reference Purposes Only Philip Higgins MD IMG XR PROCEDURES Final Resul t Performing Organization Address [facility] de Phone Number [email or web address] * XR Outside Reference (11/28/2024 2:09 AM CDT) Impressions [facility] - 11/28/2024 2:09 AM CDT These images are for Reference purposes only and have not been reviewed by [facility]. There will be no report generated by a [facility] Radiologist. Narrative [facility] - 11/28/2024 2:09 AM CDT EXAMINATION: Images For Reference Purposes Only Philip Higgins MD IMG XR PROCEDURES Final Resul t Performing Organization Address [facility] de Phone Number [email or web address] * Neuro MR Outside Reference (11/28/2024 2:09 AM CDT) Impressions [facility] - 11/28/2024 2:09 AM CDT These images are for Reference purposes only and have not been reviewed by [facility]. There will be no report generated by a [facility] Radiologist. Narrative [facility] - 11/28/2024 2:09 AM CDT EXAMINATION: Images For Reference Purposes Only Philip Higgins MD IMG MRI PROCEDURES Final Resu lt Performing Organization Address [facility] de Phone Number [email or web address] * MSK MR Outside Reference (11/28/2024 2:09 AM CDT) Impressions [facility] - 11/28/2024 2:09 AM CDT These images are for Reference purposes only and have not been reviewed by [facility]. There will be no report generated by a [facility] Radiologist. Narrative [facility] - 11/28/2024 2:09 AM CDT EXAMINATION: Images For Reference Purposes Only Philip Higgins MD IMG MRI PROCEDURES Final Resu lt [email or web address] * XR Hip Left 2 or [...] There is severe left hip osteoarthritis with afgi-pz-etah contact. Mild right hip osteoarthritis. Procedure Note Solitario Gabriel MD - 11/26/2024 EXAMINATION: XR HIP LEFT 2 OR 3 VIEWS W PELVIS HISTORY: Left hip pain FINDINGS: No examinations are available for comparison. No acute fracture or dislocation. There is severe left hip osteoarthritis with juvu-mx-wuay contact. Mild right hip osteoarthritis. IMPRESSION: 1. Severe left hip osteoarthritis. Electronically signed by: Solitario Gabriel MD Philip Higgins MD IMG XR PROCEDURES Final Resul t from Last 3 Months Additional Health Concerns Active Problems Noted Date Diagnosed Date Autogenerated Problem 12/31/2024 Insurance [facility] Care Teams Food Broker Relationship Specialty Start Date End Date Marquez Khan MD [address] [place] [address] PCP - General Internal Medicine 05/30/24
--- OUTSIDE RECORDS SUMMARY | 2025-02-04 07:41 | XMS_ITS | Clinical Summary ---
Author Organization [facility] Address [address] [place] [address] Care Team Providers Care Field Sampling Technician Name Role Phone Marquez Khan MD Primary Care Provider [phone] Source Comments [facility],non-owned Affiliates and Associated Physician Practices is amultiple site organization consisting of ambulatory clinics and hospital sitesin [place], [place], [place] and [place]. This disclosure is being madepursuant to the Care Everywhere program and may not contain all information available regarding this patient. Last updated 17.[facility] Allergies Active Allergy Reactions Criticality Noted Date Comments Sulfa Drugs Urticaria,Itching,Rash Medium 05/04/2023 Sulfacetamide Rash,Itching Medium 05/04/2023 Medications * Be [...] CAPS Take 1 (one) capsule by mouth every 2 days Active acetaminophen (Tylenol) 325 MG tablet Take [...] 24 024 Discontin ued(No Pharm No AVS) oxyCODONE, immediate release, (Roxicodone) 5 MG tabletIndications :Other acute postprocedural pain TAKE ONE TABLET BY MOUTH EVERY 4 HOURS NEEDED 12 tablet 10/14/19 24 025 Discontin ued(List Clean-Up) Active Problems Problem Noted Date Diagnosed Date Dyslipidemia 11/26/2024 H/O: hysterectomy 11/26/2024 Hypertension 11/26/2024 Low vitamin D level 11/26/2024 Metabolic syndrome 11/26/2024 Hypercalciuria 11/26/2024 Elevated cholesterol 07/07/2023 Osteoarthritis 07/07/2023 Osteopenia 07/07/2023 Hypercalcemia 07/07/2023 Thyroid nodule 07/07/2023 Hyperparathyroidism 05/04/2023 Vitamin D deficiency 10/16/2021 07/07/2023 Prediabetes 06/15/2021 07/07/2023 Primary hyperparathyroidism 06/15/202106/13 Obesity Diverticulosis Resolved Problems Problem Noted Date Diagnosed Date Resolved Date History of diabetes mellitus 07/08/2023 Overview (07/08/2023): prediabetic Encounters Date Type Department Care Team Description 01/08/2025 10:00 AM CDT Office Visit [facility] - Endocrinology [address] ([place], [place]), [place] [address] Shree Fofana MD Thyroid nodule (Primary Dx); Hypercalcemia 01/08/2025 Travel from Last 3 Months Family History Medical [...] care, and heating? Not very hard 10/13/2023 PHQ-2 Answer Date Recorded Patient Health Questionnaire-2 Score 0 01/08/2025 [facility] - Occupational Stress [...] place to sleep or slept in a [facility] (including now)? 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 Gender Identity Female 12/06/2024 10:46 AM CDT Sexual Orientation Not on file Last Filed Vital Signs Vital Sign Reading Time Taken Comments Blood Pressure 120/88 01/08/2025 9:45 AM CDT Pulse 88 01/08/2025 9:45 AM CDT Temperature 36.4 C (97.5 F) 10/14/2023 8:07 AM CDT Respiratory Rate 16 10/14/2023 8:07 AM CDT Oxygen Saturation 95% 01/08/2025 9:45 AM CDT Inhaled Oxygen Concentration 45% 10/13/2023 1 2:58 PM CDT Weight 96.2 kg (212 lb) 01/08/2025 9:45 AM CDT Height 162.6 cm (5' 4) 01/08/2025 9:45 AM CDT Body Mass Index 36.39 01/08/2025 9:45 AM CDT Plan of Treatment Health Maintenance [...] 2010 ZOSTER VACCINE (1 of 2) 2010 COVID-19 VACCINE (1 - season) 2024 INFLUENZA VACCINE (#1) 2024 12/22/2023, 2022 SCREENING FOR DIABETES 10/12/2026 , 10/13/2023, 05/13/2023, Additional history exists Respiratory Syncytial Virus (RSV) Vaccine Pt: or over 60 yrs (1 - 1-dose 75+ series) 05/16/2035 DEPRESSION SCREENING Completed 01/08/2025 HEPATITIS B VACCINE Aged Out No longe [...] Procedure Name Priority Date/Time Associated Diagnosis Comments MA US SOFT TISS HEAD&NCK R-T IMG Routine 01/08/2025 10:05 AM CDT Thyroid nodule GLUCOSE - POINT OF CARE Routine 10/13/2023 1:03 PM CDT from Last 3 Months or Most Recently Relevant to Health Maintenance Results * MA US SOFT TISS HEAD&NCK R-T IMG (01/08/2025 10:05 AM CDT) Narrative Shree Fofana MD - 01/08/2025 10:05 AM CDT Shree Fofana MD 01/08/2025 4:07 PM Ultrasound Of Thyroid Ultrasound of the Thyroid PHYSICIAN Shree Fofana MD FELLOW NONE Test Date: 01/08/2025 Test Indication: Patient Active Problem List Diagnosis Date Noted Dyslipidemia 11/26/2024 Priority: Not Prioritized H/O: hysterectomy 11/26/2024 Priority: Not Prioritized Hypertension 11/26/2024 Priority: Not Prioritized Low vitamin D level 11/26/2024 Priority: Not Prioritized Metabolic syndrome 11/26/2024 Priority: Not Prioritized Hypercalciuria 11/26/2024 Priority: Not Prioritized Elevated cholesterol 07/07/2023 Priority: Not Prioritized Osteoarthritis 07/07/2023 Priority: Not Prioritized Osteopenia 07/07/2023 Priority: Not Prioritized Hypercalcemia 07/07/2023 Priority: Not Prioritized Thyroid nodule 07/07/2023 Priority: Not Prioritized Obesity Priority: Not Prioritized Diverticulosis Priority: Not Prioritized Hyperparathyroidism (HCC) 05/04/2023 Priority: Not Prioritized Vitamin D deficiency 10/16/2021 Priority: Not Prioritized Prediabetes 06/15/2021 Priority: Not Prioritized Primary hyperparathyroidism (HCC) 06/15/2021 Priority: Not Prioritized Referring Physician: Dr. Marquez Khan MD Procedure Preformed: Ultrasound Only COMPARED TO : 01/06/2024 Nodule Size: RIGHT LOBE TRANSVERSE IMAGE #1 INFERIOR POLE, CYSTIC / SOLID, ISOECHOIC, SMOOTH BORDER, 0.39 X 0.24 CM #2 MID LOBE , ANECHOIC CYST, 0.31 X 0.24 CM, SECOND IMAGE 0.32 X 0.21 CM #3 INFERIOR POLE, ANECHOIC CYST, 0.45 X 0.20 CM LONGITUDINAL IMAGE #1 0.44 X 0.23 CM #2 0.42 X 0.27 CM #3 0.48 X 0.17 CM LEFT LOBE TRANSVERSE IMAGE MID LOBE TO INFERIOR POLE, CYSTIC/ SOLID, ISO TO HYPERECHOIC , MULTICYSTIC, HETEROGENEOUS, HALO, SMOOTH BORDER, 1.58 X 1.50 CM LONGITUDINAL IMAGE MEASURED FOUR IMAGES : 2.30 X 1.24 CM, 2.30 X 1.57 CM, 2.30 X 1.40 CM, 2.47 X 1.35 CM Echogenicity: HETEROGENEOUS ECHO TEXTURE TO BOTH LOBES Vascularity: NOT INCREASED OR ABNORMAL Number of Nodules Present: SEE ABOVE Calcifications: NONE Borders: SHARP RIGHT LOBE TRANSVERSE IMAGE : 1.55 X 1.43 CM LONGITUDINAL IMAGE : 4.60 X 1.46 CM ISTHMUS : 0.48 CM LEFT LOBE TRANSVERSE IMAGE: 1.94 X 1.78 CM LONGITUDINAL IMAGE : 4.12 X 1.60 CM ASSESSMENT NO CHANGE IN ULTRASOUND APPEARANCE NO CHANGE IN NODULE APPEARANCE AND SIZES EUTHYROID Recommendations: PLAN THYROID ULTRASOUND TODAY AT LEAST ANNUAL TSH DETERMINATION RETURN IN TWO YEARS ULTRASOUND IN TWO YEARS CHECK TSH BEFORE RETURN VISIT IF TSH GREATER THAN 5 WILL OBTAIN FREE T4 IF TSH LESS THAN 0.1 WILL OBTAIN FREE T4 AND FREE T3 AND TSI AT LEAST ANNUAL CALCIUM DETERMINATION LAB IN January, FOR RENAL PANEL LAB IN DEC OR JAN, 2026 FOR TSH AND RENAL PANEL FOR [facility] VITAMIN D 1000 UNITS DAILY CALCIUM INTAKE 1000 MG DAILY, PRIMARILY FROM FOOD SOURCES FOR METABOLIC SYNDROME DIET, EXERCISE AND WEIGHT LOSS FOR ELEVATED CHOLESTEROL AVOID TRANS FATS LOW CHOLESTEROL DIET DECREASE SATURATED FAT IN DIET Shere Fofana MD Division of Endocrinology Shree Fofana MD PROCEDURE/MINOR SURGICAL OR DERABLES Final Result * (ABNORMAL) GLUCOSE - POINT OF CARE (10/13/2023 1:03 PM CDT) Glucose WB/POC 129(H) 70 - 115 mg/dL 10/13/2023 1:08 PM CDT [facility] Specimen Type Cap Fingerstick 2023 1:08 PM CDT [facility] Blood BLOOD SPECIMEN / Unknown 10/13/2023 1:03 PM CDT 10/13/2023 1:08 PM CDT us Mayur Kinsey MD LAB - POINT OF CARE ORDERABLE S Final Result [facility] [address] [place] [address], [facility] [phone] from Last 3 Months or Most Recently Relevant to Health Maintenance Insurance [facility] Advance Directives * Full Code (Latest Code Status on File) Date Activated Date Inactivated Comments 10/13/2023 1:17 PM 10/14/2023 12:24 PM Care Teams Field Sampling Technician Relationship Specialty Start Date End Date Marquez Khan MD [address] [place] [address] PCP - General Internal Medicine 05/04/23
--- OUTSIDE RECORDS SUMMARY | 2025-02-04 07:41 | XMS_ITS | Data Portability ---
Author Organization [place] [facility] [employer], Main Office Address [address] [place] [address] Care Team Providers Care Agronomy Supervisor Name Role Phone MOR BLACKBURN Primary Care Provider [phone] MOR BLACKBURN Referring Provider Assessment Encounter Date [...] more than half the time spent in [id number] care Not available 04/02/2023 13:52:30 Plan of Treatment Reminders Order Date Submit Date Provider Last Modified By Organization Details Last Modified Time Details Appointments None recorded. Lab vitamin D, 25-hydroxy, total, serum [address]), [address] [place] [address], [address], 3 17:37:26 phosphorus, serum or plasma [address], [address] [place] [address], [address], 3 17:37:26 PTH (parathyroi d hormone), intact + calcium, serum or plasma [address]), [address] [place], [address], 3 17:37:26 TSH + free T4, serum [address]), [address] [place], [address], 3 17:37:26 HbA1c (hemoglobin A1c), blood [address]), [address] [place], [address], 3 17:37:26 insulin, serum [address]), [address] [place], [address], 3 17:37:26 CMP, serum or plasma [address]), [address] [place], [address], 3 17:37:26 Referral None recorded. Procedures None recorded. Surgeries None recorded. Imaging XR, hip + pelvis, unilateral 2023 024 [email or web address] [facility] [place], [address], [place], [address], 4 15:05:21 SPECT-CT, parathyroid [address] [facility] [address] [facility], [address] [place] [address], [address], 3 17:45:25 Medication Orders None recorded. Patient TargetsNo targets recorded. Patient InstructionsNo instructions recorded. Reason for Referral None Reported. Results Created Date Observation Date Name Description Value Unit Range Abnormal Flag Note LastModifiedBy Organization Detail LastModifiedTime 06/23/19 22 06/18/2021 DEXA, axial skele ton No observ ation record ed. [id number] [facility]) [address] [place] [address], [address], 05/13/2022 00:43:04 03/09/20 23 02/24/2023 MRI, hip, w/o contr ast No observ ation record ed. [email or web address] Not Available 02/12 11:45:32 03/09/20 23 11/30/2022 XR, hip, unila teral , 2 or 3 view No observ ation record ed. [email or web address] Not Available 02/12 11:45:32 04/01/19 24 XR, hip + pelvi s, unila teral No observ ation record ed. [facility] [place] [address], [place], [address], 04/02/2023 13:42:33 04/01/19 24 11/30/2022 XR, hip + pelvi s, unila teral No observ ation record ed. [email or web address] Not Available 2023 15:58:07 Result Notes None recorded. Problems Name Problem SNOMED Code Status Onset Date Resolution Date Notes Provider Name and Address Organization Details Recorded Time Hyperparat hyroidism 53758266 Active 2021 Not Available [facility] 3 00:39:25 Prediabete s 594696352 Active 2021 Not Available [facility] 3 00:39:25 Primary hyperparat hyroidism 89296307 Active 2021 Not Available [facility] 3 00:39:25 Vitamin D deficiency 91168791 Active 2021 Not Available [facility] 3 00:39:25 Pain of left knee joint 7077442730555 07 Active 2023 DREW Sepulveda null, [place] [facility] 4 10:43:38 Pain of left hip joint 2814009888851 00 Active 2023 DREW Sepulveda [employer] 4 11:15:37 Problem Notes None recorded. Procedures Surgical History Date Name Laterality Status Provider Name and Address Organization Details Recorded Time Hysterectomy completed Not Available [facility] 05/13/2022 00:36:36 Imaging Results None recorded. Procedure Notes None recorded. Medical Equipment None Reported. Allergies Allergen ID Allergen Name Allergen Category Reaction Reaction Severity Criticality Documentation Date Start Date Code Code System Note Provider Name and Address Organization Details Recorded Time 17601 Substance with sulfonami de structure and antibacte rial mechanism of action (substanc e) medicatio n Not available Not available Not available 05/13/2022 49126 8003 SNOMED Not Available [facility] 3 00:42:41 Medications Name Sig Start Date [...] Updated DateTime 04/01/2023 161.29 cm 43.9 kg/m2 792808.28 g DREW Sepulveda [employer] 04/01/2023 10:57:27 Date Recorded Body mass index (BMI) Body height Oxygen saturation Heart rate Body temperature Body weight Systolic And Diastolic Provider Name and Address Organization Details Last Updated DateTime 2 40.9 kg/m2 165.1 cm 97.01 % 97 /min 97.9 [degF] 101845. 72 g 118/70 mm[Hg] Not Available [facility] 3 00:37:15 Date Recorded Body height Body mass index (BMI) Body weight Body temperature Respiratory rate Heart rate Systolic And Diastolic Provider Name and Address Organization Details Last Updated DateTime 3 165.1 cm 41.8 kg/m2 224638. 12 g 97.6 [degF] 18 /min 107 /min 167/97 mm[Hg] DREW Daniels [place] [facility] [place] [employer] [facility] 3 17:23:32 Date Recorded Body mass index (BMI) Body height Oxygen saturation Heart rate Body temperature Body weight Systolic And Diastolic Provider Name and Address Organization Details Last Updated DateTime 2 40.9 kg/m2 165.1 cm 97 % 88 /min 97.8 [degF] 370316. 72 g 115/90 mm[Hg] Not Available [facility] 3 00:37:15 Date Recorded Body mass index (BMI) Body height Oxygen saturation Heart rate Body temperature Body weight Systolic And Diastolic Provider Name and Address Organization Details Last Updated DateTime 2 41.3 kg/m2 165.1 cm 96 % 90 /min 98.1 [degF] 553117. 91 g 120/80 mm[Hg] Not Available [facility] 3 00:37:15 Social History Question Answer Notes LastModified by Organizat ion Details LastModified Time Tobacco Smoking Status Never Smoker Not Available [facility] 05/13/2022 00:35:49 In The 14 Days Before Symptom Onset, Have You Had Close Contact With A Laboratory-confirm ed COVID-19 While That Case Was Ill? No [id number] Information not available 05/13/2022 In The 14 Days Before Symptom Onset, Have You Had Close Contact With A Person Who Is Under Investigation For COVID-19 While That Person Was Ill? No [id number] Information not available 05/13/2022 Have You Recently Traveled Abroad? No [id number] Information not available 05/13/2022 Sex: Female Functional Status Question Answer Note LastModified by Organizat ion Details LastModified Time Do you use any illicit or recreational drugs? No [id number] Information not available 05/13/2022 What is your level of alcohol consumption? None [id number] Information not available 05/13/2022 Mental Status None recorded. Family History Relationship Description Onset Age of this Age Resolved Age Notes LastModified by Organization Details LastModified Time Father Malignant neoplasm of lung [id number] Not available 05/13/2022 00:36:37 Paternal Grandmother Heart disease [id number] Not available 05/13/2022 00:36:38 Medical History Condition Response BLINDNESS N RHEUMATIC FEVER N MRSA N INFECTIOUS DISEASE N HEART ARRHYTHMIA N LUNG DISEASE/DISORDER N INSOMNIA N HISTORY OF DRUG ABUSE N RADIATION / CHEMOTHERAPY N COPD N HIGH CHOLESTEROL / HYPERLIPIDEMIA N EYE PROBLEMS N HYPERTHYROIDISM N BLOOD DISEASES N SURGERY N EDEMA N HYPOTHYROIDISM N SHINGLES N DEPRESSION (INCLUDING POST ) N HAVE YOU BEEN HOSPITALIZED OR SEEN IN [facility] ER IN THE PAST YEAR ? N STROKE/TIA [...] ALZHEIMER'S DISEASE N HERPES N RETINOPATHY N HEADACHES/MIGRAINES N SEIZURES/EPILEPSY N GI PROBLEMS N Low Testosterone N DIZZINESS N HEART DISEASE/HEART PROBLEMS N AIDS/HIV N KIDNEY DISEASE N LIVER DISEASE N HYPERTENSION N CANCER: SPECIFY N TOURETTE'S N BLOOD TRANSFUSION N ANEMIA/BLOOD DISORDER N ATRIAL FIBRILLATION N AUTOIMMUNE DISEASE N TUBERCULOSIS N GLAUCOMA N Gynecological HistoryNo gynecological history recorded. Obstetrics History GPAL:G 0 P 0 0 0 0 Past Encounters Encounter ID Performer Location Encounter Start Date Encounter Closed Date Diagnosis/Indication Diagnosis SNOMED-CT Code Diagnosis ICD10 Code Diagnosis IMO Codes Diagnosis Note [id number] [facility] [place] [address] [place] [address] 06/15/2021 00:00:00 06/15/2021 12:29:25 [id number] [facility] [place] [address] [place] [address] 10/16/2021 00:00:00 10/16/2021 10:35:13 [id number] [facility] [place] [address] [place] [address] 02/15/2022 00:00:00 02/15/2022 18:11:43 [id number] Julieta José MD [facility] [place] [address] [place] [address] 07/22/2022 17:09:47 07/22/2022 17:45:24 Primary hyperparathyroidism 77521508 E21.0 Patient is not taking any additional [...] there is localizati on of adenoma. Prediabetes 177476684 R7 3.03 continue metformin daily. Discussed carb counting and how to read food labels. Recommende d patient to utilize the diabetesfo Amicrobe[employer] from the ADA website to help with food preparatio n as this presents ideal carb content per meal so this will make carb counting much easier for patient. Recommende d she incorporat e natural insulin electric refrigerator servicer s such as pears, apples, cinnamon, suyapa [...] informatio n in the electronic health record, willy delgado interpreti ng results and communicat ing results to the patient. RTC in 6 months. Patient was provided a handwritte n lab order which contains our fax number. If she chooses to go outside of the [facility] to obtain labwork she was [...] in her case. She voiced understand ing. [id number] Mynor Anderson MD [facility] [address] [place] [address] 04/01/2023 10:13:14 04/04/2023 15:05:21 Pain of left hip joint 5809150324 68258 M25.552 Health Concerns Section Related Observation LastModified by Organization Detai ls LastModified Time None Recorded Concern Status LastModified by Organization Details LastModified Time None Recorded Advance Directives Directive None Recorded Payers Insurance Date Sequence Insurance Name Policy Number Policy Logan Covered Member ID Logan Member ID Guarantor Name 04/07/2023 1 [facility] [id number] Adry Fernandez [id number] Adry Fernandez Notes Date Note Type Note [...] 134 mg/dLa1c 5.9% Julieta José MD [address] [facility] [address], [place], [address], [facility] [employer] [facility] 07/22/2022 18:59:37 4 text/html patient is a [...] parathyroidectomy with Dr. José. Mynor Anderson MD [address] [place] [address], [place], [address], [facility] [employer] [facility] 04/02/2023 13:52:50 OBGyn Episode No OBEpisode recorded.
--- OUTSIDE RECORDS SUMMARY | 2025-02-04 07:41 | XMS_ITS | Clinical Summary ---
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
[2025-02-04 08:57] LABS: Albumin Level 4.6 g/dL (3.5-5.1); Anion Gap 11 mmol/L (4-12); Blood Urea Nitrogen 22 mg/dL (7-17); Calcium 10.4 mg/dL (8.4-10.2); Carbon Dioxide 32 mmol/L (22-30); Chloride 98 mmol/L (98-107); Estimated Glomerular Filt Rate 45; Glucose 116 mg/dL (65-110); Osmolality Calculated 296 mOsm/kg (285-295); Potassium 3.9 mmol/L (3.4-5.0); Sodium 141 mmol/L (137-145)
== END 2025-02-04 07:37 | disposition home or self-care (01) ==
LOC: CHSLAB 07:39
PROVIDERS: PCP Internal Medicine
DX: E04.1 Nontoxic single thyroid nodule (principal); E83.52 Hypercalcemia
CPT/HCPCS: 36415; 80069